=== PATIENT | male | born 1955 | race African-American/Black ===

== ENCOUNTER 2018-05-24 08:09 | Inpatient (IN) | payer MEDICAID, OTHER ==
[~2018-05-24] VITALS: Ht 165.1 cm; Wt 71.7 kg
--- NOTE | 2018-05-24 08:11 | NUR ---
Patient ambulated to bed 6. RN evaluating patient at bedside.
--- NOTE | 2018-05-24 08:14 | NUR ---
Dr. Peacock evaluating patient at bedside.
[2018-05-24 08:15] VITALS: BP 185/125
--- NOTE | 2018-05-24 08:22 | NUR ---
Note undone in EDM - 05/24/18 at 0829 by [email or web address] PT. C/O OF SOB X2 WEEKS, BLE EDEMA, PITTING +2. PT. STATES THAT LEGS ARE BURNING, FLUIDS SEEPING FROM LEGS. PAIN IS 9/10, CONSTANT, BURNING SENSATION. HANDS BLUE AND DUSKY. LABORED BREATHING, INTERCOSTAL MUSCLE USE. HX: DENIES RX: DENIES
--- NOTE | 2018-05-24 08:24 | NUR ---
Haven pino in ED - 05/24/18 at 0825 by MMTHEM Repiratory therapist at bedside for ABG.
--- NOTE | 2018-05-24 08:25 | NUR ---
Respiratory therapist at bedside for ABG.
--- NOTE | 2018-05-24 08:52 | NUR ---
fiberglass quality technician at bedside.
[2018-05-24 08:55] LABS: BASOPHILS % (AUTO) 0.6 % (0.0-2.0); EOSINOPHILS % (AUTO) 0.9 % (0.0-4.0); HEMATOCRIT 44.5 % (36-52); HEMOGLOBIN 13.9 g/dL (12.0-18.0); LYMPHOCYTES # (AUTO) 1.1 K/uL (2.0-11.5); LYMPHOCYTES % (AUTO) 21.3 % (20.5-51.1); MEAN CORPUSCULAR HEMOGLOBIN 28 pg (27-31); MEAN CORPUSCULAR HGB CONC 31 g/dL (33-37); MONOCYTES # (AUTO) 0.2 K/uL (0.8-1.0); MONOCYTES % (AUTO) 4.3 % (1.7-9.3); NEUTROPHILS # (AUTO) 3.8 K/uL (1.8-7.7); NEUTROPHILS % (AUTO) 72.9 % (42.2-75.2); PLATELET COUNT (AUTO) 133 K/uL (140-450); RED BLOOD CELL COUNT(AUTO) 4.89 MIL/uL (4.20-6.10); RED CELL DISTRIBUTION WIDTH 15.2 % (11.6-13.7); WHITE BLOOD COUNT (AUTO) 5.2 K/uL (4.8-10.8)
--- NOTE | 2018-05-24 09:12 | NUR ---
SWITCHED ADULT 02 OX SENSOR FROM FINGER TO PEDS O2 OX SENSOR ON R EAR.
--- NOTE | 2018-05-24 09:24 | NUR ---
UNABLE TO VOID AT THIS TIME FOR SAMPLE
[2018-05-24] MEDS ORDERED: ASPIRIN 81 MG TAB.CHEW PO ONE (09:25)
[2018-05-24] MEDS ORDERED: NITROGLYCERIN 2% 1 GM PKT TP ONE (09:25)
[2018-05-24] MEDS ORDERED: FUROSEMIDE 20 MG/2 ML VIAL IVP ONE (09:25)
[2018-05-24 09:37] LABS: PROTHROMBIN TIME 16.1 secs (10.8-13.4)
[2018-05-24] MEDS ORDERED: ONDANSETRON 4 MG/2 ML VIAL IVP PRN (10:05)
[2018-05-24] MEDS ORDERED: HYDROcodone/APAP 7.5/325 MG 1 TAB PO PRN (10:05)
[2018-05-24 10:08] LABS: ANION GAP 13.6 (8-16); POTASSIUM 3.6 mmol/L (3.5-5.1)
[2018-05-24 10:09] LABS: CREATININE 1.1 mg/dL (0.7-1.3); TOTAL BILIRUBIN 1.1 mg/dL (0.0-1.0)
[2018-05-24 11:00] VITALS: BP 171/120
--- NOTE | 2018-05-24 11:00 | NUR ---
RECEIVED PT FROM ER NURSE. PT IS AMB, AAOX4. NO S/S OF ACUTE DISTRESS ON 3L O2 VIA NC. CC: SOB AND SWELLING OF BLE. DX CHF, PLEURAL EFFUSION. INITIAL ASSESSMENT DONE. MRSA SWAB DONE. PT TOLERATED WELL. PLACE PT ON TELE. ORIENTED PT TO RM AND CALL LIGHT. PT VERBALIZED UNDERSTANDING. BED LOCKED IN LOWEST POSITION. BOTH SIDE RAILS DONE. CALL LIGHT WITHIN REACH.
--- NOTE | 2018-05-24 11:01 | NUR ---
Pt report given to JOSE ANDUJAR. Transfer of care at 1055.
[2018-05-24 11:09] LABS: FREE T4 (FREE THYROXINE) 1.45 ng/dL (0.76-1.46); MAGNESIUM 1.8 mg/dL (1.8-2.4); PHOSPHORUS 3.2 mg/dL (2.5-4.9); THYROID STIMULATING HORMONE 3.44 uIU/mL (0.34-3.74)
--- NOTE | 2018-05-24 11:10 | NUR ---
IV NOTED TO LEFT FA, 18G, FLUSHED, PATENT AND INTACT.
[2018-05-24 11:19] LABS: APPEARANCE,URINE CLEAR (CLEAR); BILIRUBIN,URINE 1+ (NEGATIVE); BLOOD, URINE NEGATIVE (NEGATIVE); COLOR,URINE YELLOW (YELLOW); LEUKOCYTE ESTERASE ,URINE NEGATIVE (NEGATIVE); NITRITE, URINE NEGATIVE (NEGATIVE); UGLUCOSE NEGATIVE (NEGATIVE)
[2018-05-24] MEDS: NACL 0.9% 1,000 ML IV SCH (11:55)
[2018-05-24] MEDS ORDERED: FUROSEMIDE 100 MG/10 ML VIAL IV SCH (12:00)
[2018-05-24 12:06] LABS: RBC,URINE 0-5 (RARE) /HPF (0-5); WBC,URINE 0-5 (RARE) /HPF (0-5)
[2018-05-24 13:00] LABS: BARBITURATE, URINE NEGATIVE ng/ml (NEG <=200); BENZODIAZEPINE, URINE NEGATIVE ng/mL (NEG <=200); CANNABINOID, URINE POSITIVE ng/mL (NEG <=50); COCAINE, URINE NEGATIVE ng/mL (NEG <=300); OPIATE, URINE NEGATIVE ng/mL (NEG <=2000); PHENCYCLIDINE SCREEN,URINE NEGATIVE ng/mL (NEG <=25)
[2018-05-24 13:30] VITALS: BP 159/93
--- NOTE | 2018-05-24 15:05 | NUR ---
ECHOCARDIOGRAM WAS DONE. PT TOLERATED WELL.
[2018-05-24 16:00] VITALS: BP 157/112
--- NOTE | 2018-05-24 16:00 | NUR ---
VITALS TAKEN, NO S/S OF ACUTE DISTRESS NOTED ON 3L O2 NC.
[2018-05-24] MEDS ORDERED: METOPROLOL 25 MG TAB PO SCH ×2 (16:54→21:00)
[2018-05-24] MEDS ORDERED: LISINOPRIL 20 MG TAB PO SCH (18:41)
--- NOTE | 2018-05-24 19:25 | NUR ---
ENDORSED PT TO MARSHMALLOW MAKER RN. PT IN STABLE CONDITION.
--- NOTE | 2018-05-24 19:26 | NUR ---
RECEIVED BEDSIDE REPORT FROM DAY SHIFT NURSE JOSE RN, PT STABLE, NO DISTRESS NOTED, IV TO L FA 18G PATENT, INTACT, INFUSING NS @ 20ML/HR, INFUSING WELL, PT ON 3LPM O2 VIA NC, PT SLEEPING, STATED HAVING NO PAIN AT THIS MOMENT, INITIAL ASSESSMENT DONE, ALL SAFETY PRECAUTION MET, CALL LIGHT WITHIN REACH, WILL CONTINUE TO MONITOR.
[2018-05-24 20:00] VITALS: BP 135/95
[2018-05-24] MEDS ORDERED: FUROSEMIDE 20 MG/2 ML VIAL IVP SCH (21:00)
--- NOTE | 2018-05-24 21:25 | NUR ---
MAIL CALLER ATTEMPT TO DO ULTRASOUND OF THE PT'S ABD, PT HAD EPISODE OF SOB, SIT UP THE PT, AND TEACH PT TO TAKE SLOW DEEP BREATHS, PO2 100 %, MAIL CALLER SAID SHE WILL TAKE PT'S ULTRASOUND IN THE MORNING, PT RESTING NOW, NO DISTRESS NOTED, BREATHING NORMALLY WHEN SITTING DOWN, CALL LIGHT WITHIN REACH, WILL CONTINUE TO MONITOR.
[2018-05-24] MEDS: DOCUSATE SODIUM 100 MG GELCAP PO SCH (21:35)
[2018-05-24] MEDS: METOPROLOL 25 MG TAB PO SCH (21:35)
--- NOTE | 2018-05-24 21:35 | NUR ---
DUE MEDICATION ADMINISTERED, PT TOLERATED WELL, NO DISTRESS NOTED, CALL LIGHT WITHIN REACH, WILL CONTINUE TO MONITOR.
[2018-05-25] VITALS: BP 136/87
--- NOTE | 2018-05-25 00:10 | NUR ---
CHECKED ON PT, PT SLEEPING, NO DISTRESS NOTED, V/S TAKEN, WNL, CALL LIGHT WITHIN REACH, WILL CONTINUE TO MONTIORL.
--- NOTE | 2018-05-25 03:21 | NUR ---
PT SLEEPING, NO DISTRESS NOTED, CALL LIGHT WITHIN REACH, WILL CONTINUE TO MONITOR.
[2018-05-25 04:00] VITALS: BP 147/90
[2018-05-25 06:54] LABS: BASOPHILS % (AUTO) 0.4 % (0.0-2.0); EOSINOPHILS % (AUTO) 0.6 % (0.0-4.0); HEMATOCRIT 39.2 % (36-52); HEMOGLOBIN 12.6 g/dL (12.0-18.0); LYMPHOCYTES # (AUTO) 0.8 K/uL (2.0-11.5); LYMPHOCYTES % (AUTO) 16.2 % (20.5-51.1); MEAN CORPUSCULAR HEMOGLOBIN 29 pg (27-31); MEAN CORPUSCULAR HGB CONC 32 g/dL (33-37); MEAN CORPUSCULAR VOLUME 89.7 fL (80-94); MONOCYTES # (AUTO) 0.4 K/uL (0.8-1.0); MONOCYTES % (AUTO) 7.4 % (1.7-9.3); NEUTROPHILS # (AUTO) 3.6 K/uL (1.8-7.7); NEUTROPHILS % (AUTO) 75.4 % (42.2-75.2); PLATELET COUNT (AUTO) 105 K/uL (140-450); RED BLOOD CELL COUNT(AUTO) 4.37 MIL/uL (4.20-6.10); RED CELL DISTRIBUTION WIDTH 14.9 % (11.6-13.7); WHITE BLOOD COUNT (AUTO) 4.8 K/uL (4.8-10.8)
--- NOTE | 2018-05-25 07:30 | NUR ---
ENDORSED PT TO DAY SHIFT NURSE EMILIANO ANDUJAR, PT IN STABLE CONDITION CALL LIGHT WITHIN REACH
[2018-05-25 08:00] VITALS: BP 138/79
[2018-05-25 08:04] LABS: POTASSIUM 3.6 mmol/L (3.5-5.1)
[2018-05-25 08:13] LABS: MAGNESIUM 1.5 mg/dL (1.8-2.4); PHOSPHORUS 3.1 mg/dL (2.5-4.9)
[2018-05-25 08:18] LABS: HEPATITIS A ANTIBODY IGM Negative (Negative); HEPATITIS B SURFACE ANTIBODY Reactive (.); HEPATITIS B SURFACE ANTIGEN Negative (Negative)
--- NOTE | 2018-05-25 08:33 | NUR ---
PATIENT HAS BEEN SCREENED AND CATEGORIZED MODERATE NUTRITION RISK. PATIENT WILL BE SEEN WITHIN 3-5 DAYS OF ADMISSION. 05/26/18 05/28/[address]
[2018-05-25] MEDS ORDERED: LISINOPRIL 20 MG TAB PO SCH (09:00)
[2018-05-25] MEDS: DOCUSATE SODIUM 100 MG GELCAP PO SCH ×2 (09:00→21:39)
[2018-05-25] MEDS ORDERED: FUROSEMIDE 20 MG/2 ML VIAL IVP SCH (09:24)
[2018-05-25] MEDS ORDERED: FUROSEMIDE 40 MG/4 ML VIAL IVP SCH (09:25)
[2018-05-25 09:37] LABS: CARBON DIOXIDE 25.3 mmol/L (21-32)
[2018-05-25] MEDS: METOPROLOL 25 MG TAB PO SCH ×2 (09:58→21:39)
[2018-05-25] MEDS: NACL 0.9% 1,000 ML IV SCH (10:05)
[2018-05-25 10:48] LABS: CHOL/HDL RATIO 3.5 (1-4.5)
[2018-05-25] MEDS ORDERED: LISINOPRIL 5 MG TAB PO SCH (11:09)
[2018-05-25 12:00] VITALS: BP 140/80
[2018-05-25 16:00] VITALS: BP 135/78
[2018-05-25] MEDS: FUROSEMIDE 40 MG/4 ML VIAL IVP SCH (17:17)
--- NOTE | 2018-05-25 19:20 | NUR ---
RECEIVED REPORT FROM DAY SHIFT RN. PT IS A&OX4. RESPIRATIONS ARE EQUAL AND UNLABORED. IV ON L FA 18G INFUSING NS AT 20ML/H. S/P THORACENTESIS DRESSING CLEAN DRY AND INTACT. ABDOMEN DISTENDED. HAS BLE EDEMA. PT ON NC 3L. NO SOB. PATIENT DENIES ANY PAIN AT THIS MOMENT. PLAN OF CARE DISCUSSED. PT VERBALIZED UNDERSTANDING. ALL NEEDS MET AT THIS TIME. CALL LIGHT WITHIN REACH
[2018-05-25 20:00] VITALS: BP 151/93
[2018-05-25 20:26] LABS: APPEARANCE,SPUN,BODY FLUID CLEAR (CLEAR); APPEARANCE,UNSPUN,BODY FLUID CLEAR (CLEAR); COLOR,BODY FLUID LT YELLOW (LT YELLOW); GLUCOSE,BODY FLUID 126 mg/dL; SPECIMENTYPE,BODY FLUID THORACENTESIS
[2018-05-25 20:27] LABS: TOTAL VOLUME,BODY FLUID 11450 mL
[2018-05-25 20:29] LABS: RBC, BODY FLUID 53 /cu. mm.; WBC, BODY FLUID 67 /cu. mm.
[2018-05-25 20:40] LABS: POLYNUCLEAR, BODY FLUID 10 %
[2018-05-25] MEDS: MAGNESIUM OXIDE 400 MG TAB PO SCH (21:39)
--- NOTE | 2018-05-25 21:39 | NUR ---
VITAL SIGNS ARE WITHIN NORMAL LIMITS. PT DENIES ANY PAIN. DUE MEDICATIONS GIVEN PT TOLERATED WELL. CALL LIGHT WITHIN REACH.
[2018-05-25] MEDS: ACETAMINOPHEN 325 MG TAB PO PRN (23:56)
[2018-05-26] VITALS: BP 150/95
--- NOTE | 2018-05-26 | NUR ---
VITAL SIGNS ARE WITHIN NORMAL LIMITS. PT COMPLAIN OF HEADACHE WILL MEDICATE PER ORDERS.
[2018-05-26] MEDS ORDERED: INFLUENZA VIRUS VACCINE QUAD 0.5 ML SYR IMVAC PRN (00:55)
[2018-05-26] MEDS ORDERED: PNEUMOCOCCAL VACCINE 23 MCG/0.5 ML VIAL IMVAC PRN (00:55)
--- NOTE | 2018-05-26 02:37 | NUR ---
PT SLEEPING. RESPIRATIONS ARE EQUAL AND UNLABORED. NO DISTRESS NOTED CALL LIGHT WITHIN REACH.
[2018-05-26 04:00] VITALS: BP 133/85
--- NOTE | 2018-05-26 04:16 | NUR ---
PT SLEEPING COMFORTABLY IN BED. NO DISTRESS NOTED. CALL LIGHT WITHIN REACH.
--- NOTE | 2018-05-26 05:44 | NUR ---
PT ASLEEP. NO DISTRESS NOTED. RESPIRATIONS EQUAL AND UNLABORED. CALL LIGHT WITHIN REACH.
[2018-05-26 07:13] LABS: BASOPHILS % (AUTO) 0.4 % (0.0-2.0); HEMATOCRIT 41.3 % (36-52); LYMPHOCYTES # (AUTO) 0.8 K/uL (2.0-11.5); LYMPHOCYTES % (AUTO) 15.9 % (20.5-51.1); MEAN CORPUSCULAR HEMOGLOBIN 28 pg (27-31); MEAN CORPUSCULAR HGB CONC 32 g/dL (33-37); MEAN CORPUSCULAR VOLUME 89.8 fL (80-94); MONOCYTES # (AUTO) 0.4 K/uL (0.8-1.0); MONOCYTES % (AUTO) 8.4 % (1.7-9.3); NEUTROPHILS # (AUTO) 3.6 K/uL (1.8-7.7); NEUTROPHILS % (AUTO) 74.3 % (42.2-75.2); PLATELET COUNT (AUTO) 109 K/uL (140-450); RED BLOOD CELL COUNT(AUTO) 4.59 MIL/uL (4.20-6.10); RED CELL DISTRIBUTION WIDTH 14.8 % (11.6-13.7); WHITE BLOOD COUNT (AUTO) 4.8 K/uL (4.8-10.8)
--- NOTE | 2018-05-26 07:15 | NUR ---
RECEIVED REPORT FROM PATHOLOGY SECRETARY RN. PT IS SLEEPING, ROUSED BY NAME, OX4. NO S/S OF ACUTE DISTRESS NOTED ON 3L O2 NC. IV ON L FA 18G INFUSING NS AT 20ML/HR, ASYMPTOMATIC. S/P DAY 2 THORACENTESIS, DRESSING CLEAN, DRY AND INTACT. BLE EDEMA, PITTING 2+. DENIES ANY PAIN AT THIS MOMENT. PLAN OF CARE DISCUSSED. PT VERBALIZED UNDERSTANDING. BED IN LOWEST POSITION. CALL LIGHT WITHIN REACH.
--- NOTE | 2018-05-26 07:15 | NUR ---
ENDORSED PT TO DAY SHIFT RN. PT IN STABLE CONDITION
[2018-05-26 08:00] VITALS: BP 145/96
[2018-05-26] MEDS: MAGNESIUM OXIDE 400 MG TAB PO SCH (08:09)
[2018-05-26] MEDS: METOPROLOL 25 MG TAB PO SCH (08:10)
[2018-05-26] MEDS: DOCUSATE SODIUM 100 MG GELCAP PO SCH (08:10)
[2018-05-26] MEDS: FUROSEMIDE 40 MG/4 ML VIAL IVP SCH (08:11)
[2018-05-26 08:47] LABS: ANION GAP 10.7 (8-16); CARBON DIOXIDE 31.2 mmol/L (21-32); CREATININE 1.1 mg/dL (0.7-1.3); POTASSIUM 3.9 mmol/L (3.5-5.1)
[2018-05-26 08:49] LABS: MAGNESIUM 1.4 mg/dL (1.8-2.4); PHOSPHORUS 2.7 mg/dL (2.5-4.9)
[2018-05-26] MEDS ORDERED: LISINOPRIL 5 MG TAB PO SCH (09:00)
[2018-05-26] MEDS: NACL 0.9% 1,000 ML IV SCH (09:02)
[2018-05-26] MEDS ORDERED: MAG SULF 2000 MG/WATER PREMIX 100 ML IV ONE (10:30)
--- NOTE | 2018-05-26 10:36 | NUR ---
REDUCED O2 TO 1.5 L NC. NO S/S OF ACUTE DISTRESS AT THIS TIME. WILL RECHECK O2 SAT AT 1200
--- NOTE | 2018-05-26 10:53 | NUR ---
O2 SAT RIGHT NOW IS 97% AT 1.5L NC. DR LOVING REMOVED PT'S O2. NO S/S OF ACUTE DISTRESS AT THIS TIME.
[2018-05-26] MEDS ORDERED: MAGNESIUM SULFATE 4GM in STERILE WATER 100 ML PREMIX IV SCH (11:00)
[2018-05-26] MEDS: ACETAMINOPHEN 325 MG TAB PO PRN (11:53)
--- NOTE | 2018-05-26 11:55 | NUR ---
O2 SAT 96% ON ROOM AIR. NO S/S OF ACUTE DISTRESS AT THIS TIME.
[2018-05-26 12:00] VITALS: BP 140/87
[2018-05-26] MEDS ORDERED: LISI-424 PO (12:02)
[2018-05-26] MEDS ORDERED: METO25TA PO (12:02)
[2018-05-26] MEDS ORDERED: POTA10CE85 PO (12:03)
[2018-05-26] MEDS ORDERED: FURO-570 PO (12:03)
[2018-05-26 13:49] LABS: LDH,BODY FLUID 102 U/L
[2018-05-26 14:23] LABS: HEPATITIS B CORE AB TOTAL Positive (Negative)
--- NOTE | 2018-05-26 15:20 | NUR ---
PT DISCHARGED PER MD ORDER. MEDIATION TEACHING AND DISCHARGE INSTRUCTIONS GIVEN. PT VERBALIZED UNDERSTANDING. PT SIGNED ALL DISCHARGE PAPER. REMOVED TELE BOX, DC IV CATH, TIP INTACT, PRESSURE APPLIED. NO S/S OF ACUTE DISTRESS NOTED ON ROOM AIR. THORACENTESIS SITE INTACT WITH BAND-AID, NO DISCHARGE NOTED. DENIES ANY PAIN. WILL WHEEL PT OUT WHEN HIS FRIEND IS HERE TO PICK HIM UP.
--- NOTE | 2018-05-26 15:55 | NUR ---
PT HAS CALLED HIS FRIEND MEHRDAD FOR RATE REVIEWER, WALKED WITH PT TO FRONT LOBBY, PT WAITING FOR HIS RIDE.
== END 2018-05-26 15:55 | disposition home or self-care (01) | DRG 190 ==
LOC: MED 08:09 → MTU 10:05
PROVIDERS: ADMIT General Practice; ATTEND General Practice
PROC: 0W993ZZ Drainage of Right Pleural Cavity, Percutaneous Approach (ICD-10-PCS; principal; 2018-05-25)
PROC: 3E0234Z Introduction of Serum, Toxoid and Vaccine into Muscle, Percutaneous Approach (ICD-10-PCS; 2018-05-26)
PROC: 3E02340 Introduction of Influenza Vaccine into Muscle, Percutaneous Approach (ICD-10-PCS; 2018-05-26)
DX: I21.4 Non-ST elevation (NSTEMI) myocardial infarction (principal); J96.00 Acute respiratory failure, unspecified whether with hypoxia or hypercapnia; I50.43 Acute on chronic combined systolic (congestive) and diastolic (congestive) heart failure; J90 Pleural effusion, not elsewhere classified; E83.42 Hypomagnesemia; I07.1 Rheumatic tricuspid insufficiency; I27.20 Pulmonary hypertension, unspecified; I42.9 Cardiomyopathy, unspecified; R74.0 Nonspecific elevation of levels of transaminase and lactic acid dehydrogenase [LDH]; I16.0 Hypertensive urgency; F17.210 Nicotine dependence, cigarettes, uncomplicated; F12.90 Cannabis use, unspecified, uncomplicated; I34.0 Nonrheumatic mitral (valve) insufficiency; Z68.26 Body mass index [BMI] 26.0-26.9, adult; Z79.899 Other long term (current) drug therapy; Z23 Encounter for immunization
CPT/HCPCS: 36415; 36600; 71045; 76705; 76942; 80048; 80053; 80305; 81001; 82150; 82803; 82945; 83036; 83605; 83615; 83690; 83735; 83880; 84100; 84155; 84157; 84439; 84443; 84484; 85025; 85610; 85730; 86704; 86706; 86708; 86709; 86803; 87040; 87070; 87075; 87081; 87205; 87340; 89051; 90658; 90732; 93005; 96374; 99291; J1940; J2001; J7030; Q0092

== ENCOUNTER 2018-07-18 17:30 | Inpatient (IN) | payer MEDICAID ==
[~2018-07-18] VITALS: Ht 165.1 cm; Wt 63.5 kg
[~2018-07-18 17:30] MED LIST: FURO-570 PO; LISI-424 PO; METO25TA PO; POTA10CE85 PO
[2018-07-18] MEDS ORDERED: FUROSEMIDE 20 MG/2 ML VIAL IVP ONE (18:18)
[2018-07-18] MEDS ORDERED: ASPIRIN 81 MG TAB.CHEW ONE (18:19)
[2018-07-18] MEDS ORDERED: NITROGLYCERIN 2% 1 GM PKT TP ONE (18:19)
[2018-07-18] MEDS ORDERED: LEVOFLOXACIN 500 MG/D5W PREMIX 100 ML IV ONE (18:39)
--- NOTE | 2018-07-18 19:06 | NUR ---
PT IN BED 4 UPON RECIEVING REPORT. PT ON BIPAP. REPORT TAKEN FROM DIEGO RN. TRIAGE AND INITIAL NURSES NOTES DONE BY HAND PER DOWN-TIME PROTOCOL. PT IN BED WITH VSS. ALERT WITH EYES OPEN. BIPAP ON. CONTINUE TO MONITOR.
--- NOTE | 2018-07-18 20:32 | NUR ---
REPORT GIVEN AND CARE TRANSFERED TO TAL RN ROOM 104A. TRANSFERED VIA GURNEY WITH VSS. PT ON BIPAP, ESCORTED BY MOTOR CARRIER INSPECTOR.
--- NOTE | 2018-07-18 20:34 | NUR ---
RECEIVED PATIENT FROM STREET SPRINKLER JOMAR. TRANSFERRED PATIENT INTO UNIT VIA GURNEY, PATIENT ABLE TO AMBULATE TO BED WITH ASSISTANCE. PATIENT IS A/Ox4, ABLE TO MAKE NEEDS KNOWN. CHIEF COMPLAINT OF SOB x 1 WEEK, BILATERAL SWELLING OF UPPER AND LOWER EXTREMITIES, NON PITTING. DX - CHF EXACERBATION, HX FOR HTN AND CHF. INTRODUCED SELF TO PATIENT, UPDATED BOARD. RT WAS IN THE ROOM WHILE PATIENT WAS BEING ADMITTED, BI-PAP MASK ADMINISTERED. IV NOTED ON RIGHT ANTECUBITAL, INTACT AND PATENT, NO S/SX OF SWELLING OR INFECTION NOTED. ADMITTING VITAL SIGNS ARE FOLLOWS: BP 162/99, RR 33, HR 115, O2Sat 100%, TEMP 97.8. CHECKED BILATERAL UPPER AND LOWER EXTREMITIES, NO PITTING NOTED. INITIAL ASSESSMENT DONE, ALL SAFETY PRECAUTIONS MET. BED IN THE LOWEST POSITION, CALL LIGHT WITHIN REACH. WILL CONTINUE TO MONITOR.
[2018-07-18] MEDS ORDERED: LORazepam 2 MG/ML VIAL IM/IVP PRN (20:50)
[2018-07-18] MEDS ORDERED: ACETAMINOPHEN 325 MG TAB PO PRN (20:50)
[2018-07-18] MEDS ORDERED: ONDANSETRON 4 MG/2 ML VIAL IM/IVP PRN (20:50)
[2018-07-18] MEDS ORDERED: DOCUSATE SODIUM 100 MG GELCAP PO PRN (20:50)
[2018-07-18 21:52] LABS: MAGNESIUM 1.9 mg/dL (1.8-2.4); PHOSPHORUS 4.2 mg/dL (2.5-4.9); THYROID STIMULATING HORMONE 3.74 uIU/mL (0.34-3.74)
--- NOTE | 2018-07-18 23:01 | NUR ---
2100 PT WANTED OFF BIPAP TO EAT. PLACED PT ON 9L OXYMIZER. PT WILL GO BACK ON WHEN DONE EATING
--- NOTE | 2018-07-18 23:45 | NUR ---
DECREASED PT TO 5 L OXIMYZER. WILL CONTINUE TO MONITOR.
[2018-07-19 00:03] VITALS: BP 160/99
[2018-07-19 00:04] LABS: BARBITURATE, URINE NEG. ng/ml (NEG <=200); BENZODIAZEPINE, URINE NEG. ng/mL (NEG <=200); CANNABINOID, URINE NEG. ng/mL (NEG <=50); COCAINE, URINE NEG. ng/mL (NEG <=300); OPIATE, URINE NEG. ng/mL (NEG <=2000); PHENCYCLIDINE SCREEN,URINE NEG. ng/mL (NEG <=25)
--- NOTE | 2018-07-19 00:15 | NUR ---
LAB CALLED TO REPORT CRITICAL LABS TROPONIN 0.502, LACTIC ACID 3.3. BOTH TAKEN AT 1755 07/18/[address]. DR. CHU MADE AWARE, NO NEW ORDERS. Addendum: 07/19/18 at 0795 by Kane Diana RN ADDNEDUM - DR. HILTON
[2018-07-19 00:17] LABS: ANION GAP 8.5 (8-16); CARBON DIOXIDE 28.1 mmol/L (21-32); CREATININE 1.2 mg/dL (0.7-1.3); POTASSIUM 4.6 mmol/L (3.5-5.1)
[2018-07-19 00:18] LABS: ALBUMIN 3.2 g/dL (3.4-5.0); TOTAL BILIRUBIN 1.3 mg/dL (0.0-1.0)
[2018-07-19 00:23] LABS: BASOPHILS % (AUTO) 0.3 % (0.0-2.0); EOSINOPHILS % (AUTO) 0.3 % (0.0-4.0); HEMATOCRIT 43.2 % (36-52); HEMOGLOBIN 14.4 g/dL (12.0-18.0); LYMPHOCYTES # (AUTO) 0.7 K/uL (2.0-11.5); LYMPHOCYTES % (AUTO) 12.2 % (20.5-51.1); MEAN CORPUSCULAR HEMOGLOBIN 27 pg (27-31); MEAN CORPUSCULAR HGB CONC 31 g/dL (33-37); MEAN CORPUSCULAR VOLUME 88.2 fL (80-94); MONOCYTES # (AUTO) 0.3 K/uL (0.8-1.0); MONOCYTES % (AUTO) 5.7 % (1.7-9.3); NEUTROPHILS # (AUTO) 4.6 K/uL (1.8-7.7); NEUTROPHILS % (AUTO) 81.5 % (42.2-75.2); PLATELET COUNT (AUTO) 126 K/uL (140-450); RED BLOOD CELL COUNT(AUTO) 5.26 MIL/uL (4.20-6.10); RED CELL DISTRIBUTION WIDTH 16.4 % (11.6-13.7); WHITE BLOOD COUNT (AUTO) 5.7 K/uL (4.8-10.8)
[2018-07-19 00:39] LABS: APPEARANCE,URINE CLEAR (CLEAR); COLOR,URINE YELLOW (YELLOW)
[2018-07-19 00:40] LABS: BILIRUBIN,URINE NEGATIVE (NEGATIVE); BLOOD, URINE NEGATIVE (NEGATIVE); LEUKOCYTE ESTERASE ,URINE NEGATIVE (NEGATIVE); NITRITE, URINE NEGATIVE (NEGATIVE); RBC,URINE NONE SEEN /HPF (0-5); UGLUCOSE NEGATIVE (NEGATIVE); WBC,URINE NONE SEEN /HPF (0-5)
[2018-07-19 00:41] LABS: HYALINE CASTS, URINE 0-10 /LPF (None Seen); URINE AMORPHOUS URATE 2+ /HPF (None Seen)
[2018-07-19] MEDS ORDERED: FUROSEMIDE 40 MG/4 ML VIAL IVP SCH (01:00)
[2018-07-19] MEDS ORDERED: PIPERACILLIN/TAZOBACTAM 3.375 GM VIAL IV ONE ×2 (01:11→06:16)
--- NOTE | 2018-07-19 01:20 | NUR ---
LAB CALLED ABOUT CRITICAL LAB LACTIC ACID 2.2, TRENDING DOWN. DR. CHU MADE AWARE, NO NEW ORDERS. Addendum: 07/19/18 at 0748 by Kane Diana RN ADDSCOTTYUM - DR. HILTON
[2018-07-19] MEDS: PIPER/TAZO 3.375GM/D5W PREMIX 50 ML IV SCH ×4 (01:21→18:47)
[2018-07-19] MEDS: NACL 0.9% 1,000 ML IV SCH ×2 (01:21→20:48)
--- NOTE | 2018-07-19 01:30 | NUR ---
FREQUENT ROUNDS MADE. PATIENT ASLEEP. WILL CONTINUE TO MONITOR.
--- NOTE | 2018-07-19 03:24 | NUR ---
LAB CALLED ABOUT CRITICAL LAB TROPONIN 0.454, TRENDING DOWN, TAKEN AT 0100. DR. CHU MADE AWARE, NO NEW ORDERS. Addendum: 07/19/18 at 0770 by Kane Diana RN ADDENDUM - DR. HILTON
[2018-07-19 04:00] VITALS: BP 158/104
[2018-07-19 04:25] LABS: ANION GAP 9.1 (8-16); CARBON DIOXIDE 29.1 mmol/L (21-32); CREATININE 1.2 mg/dL (0.7-1.3); POTASSIUM 4.2 mmol/L (3.5-5.1)
[2018-07-19 04:31] LABS: CHOL/HDL RATIO 4.1 (1-4.5); MAGNESIUM 1.7 mg/dL (1.8-2.4); PHOSPHORUS 4.3 mg/dL (2.5-4.9)
[2018-07-19 04:32] LABS: ALBUMIN 2.9 g/dL (3.4-5.0); BILIRUBIN,DIRECT 0.7 mg/dL (0.0-0.3); TOTAL BILIRUBIN 1.1 mg/dL (0.0-1.0)
[2018-07-19 06:16] LABS: BASOPHILS % (AUTO) 0.3 % (0.0-2.0); EOSINOPHILS % (AUTO) 0.5 % (0.0-4.0); HEMATOCRIT 44.1 % (36-52); HEMOGLOBIN 13.9 g/dL (12.0-18.0); LYMPHOCYTES # (AUTO) 0.6 K/uL (2.0-11.5); LYMPHOCYTES % (AUTO) 10.8 % (20.5-51.1); MEAN CORPUSCULAR HEMOGLOBIN 28 pg (27-31); MEAN CORPUSCULAR HGB CONC 32 g/dL (33-37); MEAN CORPUSCULAR VOLUME 87.1 fL (80-94); MONOCYTES # (AUTO) 0.5 K/uL (0.8-1.0); MONOCYTES % (AUTO) 8.1 % (1.7-9.3); NEUTROPHILS # (AUTO) 4.6 K/uL (1.8-7.7); NEUTROPHILS % (AUTO) 80.3 % (42.2-75.2); PLATELET COUNT (AUTO) 119 K/uL (140-450); RED BLOOD CELL COUNT(AUTO) 5.07 MIL/uL (4.20-6.10); WHITE BLOOD COUNT (AUTO) 5.7 K/uL (4.8-10.8)
--- NOTE | 2018-07-19 07:10 | NUR ---
ENDORSED PATIENT TO AM CON FRANK. PATIENT IN STABLE CONDITION.
[2018-07-19] MEDS ORDERED: MAGNESIUM OXIDE 400 MG TAB PO SCH (07:16)
--- NOTE | 2018-07-19 07:30 | NUR ---
RECEIVED PT ON BED AAOX4. NO SOB NOTED, ON OXYGEN THERAPY AT 4PM VIA OXYMIZER WITH SATS OF 95%. NO C/O PAIN AT THIS TIME. IV TO RT AC PATENT AND INTACT. CHEST, DIMINISHED AIR ENTRY TO THE BASES. ABDOMEN SOFT, BOWEL SOUNDS PRESENT. + 2 EDEMA NOTED ON BLE, ELEVATED WITH PILLOW. INSTRUCTED PT TO CALL FOR ASSISTANCE, CALL LIGHT WITHIN REACH, PT VERBALIZED UNDERSTANDING.
--- NOTE | 2018-07-19 07:46 | NUR ---
DECREASED OXYMIZER TO 4 L SPO2 100
--- NOTE | 2018-07-19 07:55 | NUR ---
PATIENT HAS BEEN SCREENED AND CATEGORIZED HIGH NUTRITION RISK. PATIENT WILL BE SEEN WITHIN 1-2 DAYS OF ADMISSION. 07/19/18-07/20/[address]
[2018-07-19 08:00] VITALS: BP 150/89
--- NOTE | 2018-07-19 08:20 | NUR ---
PLACED CONT. POX PROBE ON EAR SPO2 100 ON 4L OXYMIZER
[2018-07-19] MEDS ORDERED: FUROSEMIDE 20 MG/2 ML VIAL IVP SCH (09:00)
[2018-07-19] MEDS ORDERED: METOPROLOL 25 MG TAB PO SCH (09:00)
[2018-07-19] MEDS ORDERED: ATORVASTATIN 20 MG TAB PO SCH (09:00)
[2018-07-19] MEDS ORDERED: MAG SULF 2000 MG/WATER PREMIX 50 ML IV SCH (09:26)
[2018-07-19] MEDS: NICOTINE TRANSD SYS 7 MG/24 HR PATCH TD SCH (09:39)
[2018-07-19] MEDS: FUROSEMIDE 20 MG/2 ML VIAL IVP SCH ×2 (09:40→21:37)
[2018-07-19] MEDS: LISINOPRIL 5 MG TAB PO SCH (09:40)
[2018-07-19] MEDS: METOPROLOL 25 MG TAB PO SCH ×2 (09:41→21:38)
[2018-07-19] MEDS: LACTOBACILLUS RHAMNOSUS GG 1 EACH CAP PO SCH (09:41)
[2018-07-19] MEDS: ASPIRIN 81 MG TAB.CHEW PO SCH (09:41)
--- NOTE | 2018-07-19 10:00 | NUR ---
OXYGEN EXTENSION PROVIDED BY RT SO PT CAN MOVE AROUND THE ROOM WITHOUT RESTRICTION FORM SHORT O2 CORD.
[2018-07-19 12:00] VITALS: BP 132/88
--- NOTE | 2018-07-19 12:42 | NUR ---
07/19/18 RD INITIAL ASSESSMENT COMPLETED PLEASE REFER TO NUTRITION ASSESSMENT UNDER CARE ACTIVITY FOR ESTIMATED NUTRITIONAL NEEDS. 1. RECOMMEND CARDIAC DIET 2. RD PROVIDED LOW SODIUM NUTRITION THERAPY 3. RD TO FOLLOW-UP 3-5 DAYS, MODERATE RISK MICHAEL HAYES RD
--- NOTE | 2018-07-19 14:30 | NUR ---
PT RESTING, ON HIGH BACK REST. NO SOB NOTED. NO SIGNS OF PAIN.
[2018-07-19 16:00] VITALS: BP 139/96
--- NOTE | 2018-07-19 17:00 | NUR ---
PT SEEN BY DR. HAYWARD AT THE BEDSIDE WITH NEW ORDERS. ULTRASOUND GUIDED THORACENTESIS SIGNED BY PT, PROCEDURE EXPLAINED WELL BY DR. HAYWARD, RISKS AND BENEFITS EXPLAINED, PT VERBALIZED UNDERSTANDING.
--- NOTE | 2018-07-19 17:10 | NUR ---
SPOKE WITH CINDY FROM ULTRASOUND, STATED THAT PROCEDURE WILL BE DONE TOMORROW FIRST THING IN THE MORNING. DR HAYWARD AND PT NOTIFIED, VERBALIZED UNDERSTANDING.
[2018-07-19] MEDS: hydrALAZINE 25 MG TAB PO SCH (17:22)
--- NOTE | 2018-07-19 19:07 | NUR ---
PT AWAKE, TACHYPNEIC AT TIMES, STILL ON 4LPM OXYMIZER WITH 98% O2 SATS. ON HIGH BACK REST. NO C/O PAIN AT THSI TIME. WILL ENDORSE TO NEXT SHIFT NURSE FOR CONTINUITY OF CARE.
--- NOTE | 2018-07-19 19:10 | NUR ---
RECEIVED PT FROM ZAC ANDUJAR PT IS AAOX4 ON BES REST ON OXIMIZER 4 LTS NOT SOB NOTED ON TELMETRY SR IV ON RT AC INFUSING WELL, RESPIRATORY THERAPY IS HERE ASSISTING THE PT INITIAL ASSESSMENT DONE
[2018-07-19 20:00] VITALS: BP 137/85
--- NOTE | 2018-07-19 21:30 | NUR ---
Patient's Plan of Care was discussed and reviewed with NITRIC ACID CONCENTRATOR OPERATOR: GRICEL ZAMARRIPA
--- NOTE | 2018-07-19 21:30 | NUR ---
PT IS ENDORSED TO GRICEL ALEXIS FOR CONTINUITY OF CARE
--- NOTE | 2018-07-19 21:31 | NUR ---
RECD. FOR CONTINUITY OF CARE. RESTING IN BED, AWAKE, A/OX4. ON 02 AT 4 LITERS VIA N/C WITH OXYMIZER, 02 SAT -97%. WITH SOB ON EXERTION. HOB ELEVATED 45 DEGREES. IV OF NS AT INFUSING AT 10 ML/HR, RIGHT AC G20. WITH PITTING EDEMA 2+ ON BILATERAL LOWER EXTREMITIES. SAFETY MEASURES ENFORCED. ON CONTINUOUS PULSE OXIMETER. DENIES PAIN 0/10.
[2018-07-20] VITALS: BP 131/97
[2018-07-20] MEDS ORDERED: ZOLPIDEM 5 MG TAB PO SCH (01:00)
--- NOTE | 2018-07-20 01:00 | NUR ---
PULSE OX FLUCTUATING FROM 86 TO 99%, INFORMED RT BHARATH, STATED IT IS DUE TO POOR PERFUSION AND IT HAS BEEN THAT WAY ALL DAY THAT'S WHY PATIENT IS ON 4 LITERS N/C. WILL CONTINUE TO MONITOR, NO RESPIRATORY DISTRESS NOTED.
[2018-07-20] MEDS: PIPER/TAZO 3.375GM/D5W PREMIX 50 ML IV SCH ×3 (01:06→17:19)
--- NOTE | 2018-07-20 01:20 | NUR ---
ASSISTED OUT OF BED TO GO TO BR TO HAVE BM. BACK TO BED AFTER HAVING BM. SAFETY MAINTAINED. WARM BLANKET GIVEN, 02 SAT - 93%.
--- NOTE | 2018-07-20 01:25 | NUR ---
WANTS TO BE ABLE TO SLEEP WELL TONIGHT, MEDICATED WITH AMBIEN 5 MG. PO ORDERED.
[2018-07-20 04:00] VITALS: BP 136/95
--- NOTE | 2018-07-20 06:30 | NUR ---
RESTING COMFORTABLY SLEEPING, WAKEN UP. STATED ABLE TO SLEEP WELL.
--- NOTE | 2018-07-20 07:10 | NUR ---
RECEIVED PT REPORT AT BEDSIDE FROM DIPPER FISH NURSE. PT IS ALERT AND AWAKE, NO S/S OF ACUTE DISTRESS, NO SOB, NO C/O PAIN. PT IS ON 4 L O2 NC, SKIN IS INTACT. IV SITE NOTED TO THE RAC, 20 G, SALINE LOCKED. FALL PRECAUTIONS IN PLACE. CALL LIGHT WITHIN REACH. WILL CONT TO MONITOR PT.
--- NOTE | 2018-07-20 07:10 | NUR ---
CONDITION REMAIN STABLE. ENDORSED TO AM SHIFT NURSE FOR CONTINUITY OF CARE.
[2018-07-20 08:00] VITALS: BP 142/93
[2018-07-20 08:10] LABS: CREATININE 1.2 mg/dL (0.7-1.3)
[2018-07-20 08:26] LABS: MAGNESIUM 1.9 mg/dL (1.8-2.4); PHOSPHORUS 3.9 mg/dL (2.5-4.9)
[2018-07-20 08:30] LABS: ANION GAP 6.7 (8-16); POTASSIUM 3.7 mmol/L (3.5-5.1)
[2018-07-20 08:39] LABS: PROTHROMBIN TIME 15.5 secs (10.8-13.4)
[2018-07-20 08:59] LABS: BASOPHILS % (AUTO) 0.1 % (0.0-2.0); EOSINOPHILS # (AUTO) 0.1 K/uL (0-0.4); EOSINOPHILS % (AUTO) 1.9 % (0.0-4.0); HEMATOCRIT 45.3 % (36-52); HEMOGLOBIN 14.1 g/dL (12.0-18.0); LYMPHOCYTES # (AUTO) 0.7 K/uL (2.0-11.5); MEAN CORPUSCULAR HEMOGLOBIN 27 pg (27-31); MEAN CORPUSCULAR HGB CONC 31 g/dL (33-37); MEAN CORPUSCULAR VOLUME 87.4 fL (80-94); MONOCYTES # (AUTO) 0.3 K/uL (0.8-1.0); MONOCYTES % (AUTO) 5.5 % (1.7-9.3); NEUTROPHILS # (AUTO) 4.4 K/uL (1.8-7.7); NEUTROPHILS % (AUTO) 80.5 % (42.2-75.2); PLATELET COUNT (AUTO) 114 K/uL (140-450); RED BLOOD CELL COUNT(AUTO) 5.18 MIL/uL (4.20-6.10); WHITE BLOOD COUNT (AUTO) 5.5 K/uL (4.8-10.8)
[2018-07-20] MEDS: LISINOPRIL 5 MG TAB PO SCH (09:49)
[2018-07-20] MEDS: LACTOBACILLUS RHAMNOSUS GG 1 EACH CAP PO SCH (09:49)
[2018-07-20] MEDS: hydrALAZINE 25 MG TAB PO SCH ×3 (09:49→17:19)
[2018-07-20] MEDS: ASPIRIN 81 MG TAB.CHEW PO SCH (09:49)
[2018-07-20] MEDS: METOPROLOL 25 MG TAB PO SCH ×2 (09:50→21:07)
[2018-07-20] MEDS: NICOTINE TRANSD SYS 7 MG/24 HR PATCH TD SCH ×2 (09:52→13:56)
--- NOTE | 2018-07-20 11:33 | NUR ---
PT HAVING US GUIDED THORACENTESIS AT THIS TIME. R LUNG. DR JOSHI PERFORMING PROCEDURE. TIME-OUT COMPLETED.
[2018-07-20 12:00] VITALS: BP 124/80
--- NOTE | 2018-07-20 12:00 | NUR ---
1750 ML OF YELLOW FLUID DRAINED OUT OF THE R LUNG. PT TOLERATED WELL. LUNG FLUID SENT TO LAB.
[2018-07-20] MEDS: MORPHINE SULFATE 2 MG/ML SYR IVP PRN ×2 (12:16→21:20)
[2018-07-20] MEDS ORDERED: PIPER/TAZO 3.375GM/D5W PREMIX 50 ML IV SCH (13:54)
[2018-07-20] MEDS: FUROSEMIDE 40 MG/4 ML VIAL IVP SCH ×2 (13:56→21:07)
[2018-07-20 16:00] VITALS: BP 132/79
--- NOTE | 2018-07-20 16:00 | NUR ---
PT MOVED TO ROOM 105-B
--- NOTE | 2018-07-20 17:15 | NUR ---
PT HAVING EKG AT THIS TIME
--- NOTE | 2018-07-20 17:29 | NUR ---
PT C/O PAIN IN THE R CHEST AREA, LIKELY RELATED TO THE THORACENTESIS. MD NOTIFIED AND TALKING WITH THE PATIENT RIGHT NOW.
[2018-07-20] MEDS: HYDROcodone/APAP 5/325 MG 1 TAB TAB PO PRN (18:27)
[2018-07-20 18:57] LABS: GLUCOSE,BODY FLUID 106 mg/dL
[2018-07-20 19:07] LABS: APPEARANCE,SPUN,BODY FLUID CLEAR (CLEAR); APPEARANCE,UNSPUN,BODY FLUID CLEAR (CLEAR); COLOR,BODY FLUID LT YELLOW (LT YELLOW); RBC, BODY FLUID 163 /cu. mm.; SPECIMENTYPE,BODY FLUID PLEURAL; WBC, BODY FLUID 53 /cu. mm.
[2018-07-20 19:10] LABS: POLYNUCLEAR, BODY FLUID 5 %
--- NOTE | 2018-07-20 19:15 | NUR ---
PT ENDORSED TO ASSISTANT PROFESSOR OF GERMAN IN STABLE CONDITION
--- NOTE | 2018-07-20 19:15 | NUR ---
RECEIVED REPORT FROM MICHAEL ANDUJAR DAYSHIFT NURSE AT BEDSIDE FOR CONTINUITY OF CARE, PT IN STABLE CONDITION.
[2018-07-20 20:00] VITALS: BP 141/82
--- NOTE | 2018-07-20 20:00 | NUR ---
PT SITTING UP IN BED WITH SIDE RAILS UP X2 AND ALL FALLS PRECAUTIONS IN PLACE. PT IS AOX4 HAS AN OXIMIZER ON AT 2LITERS. PT HAD BANDAID ON RIGHT SIDE OF BACK WHERE HIS THORACENTESIS I WAS DONE. BANDAGE INTACT WITH NO DRAINAGE NOTED. PT LUNG SOUNDS CLEAR. V/S FOLLOWS T 98.5 P 52 R 18 B/P 113/78 02 95% WITH 2 LITERS OXIMIZER. PT SKIN INTACT BUT THERE IS PITTING EDEMA PLUS 3 ON BLE. PT ABLE TO AMBULATE WITH STANDBY ASSISTANCE. PT STOOL BY BEDSIDE TO USE URINAL AT BEDSIDE. PT ASSISTED BACK TO BED. PT C/O 5/10 PAIN AT THIS TIME. WILL MEDICATE PT AND MONITOR FOR PAIN RELIEF.
[2018-07-20] MEDS: NACL 0.9% 1,000 ML IV SCH (20:48)
--- NOTE | 2018-07-20 21:30 | NUR ---
PT HAS C/O OF 7/10 PAIN AND WAS GIVEN MORPHINE 1MG IVP/PRN. PT ALSO GIVEN DUE MEDS OF LASIX, AND LOPRESSOR. PT PLATELETS LOW, SPOKE TO RESIDENT MD DR. HILTON. SHE WAS MADE AWARE OF PLATELET LEVEL AND SAID THAT HEPARIN CAN BE GIVEN. PT ALSO GIVEN HEPARIN AT THIS TIME. WILL CONTINUE TO MONITOR FOR EFFECT.
[2018-07-21] VITALS: BP 138/83
[2018-07-21] MEDS: PIPER/TAZO 3.375GM/D5W PREMIX 50 ML IV SCH ×4 (00:06→17:16)
--- NOTE | 2018-07-21 00:30 | NUR ---
PT IV SITE ON RAC NOTED LEAKING AND SOME INFILTRATION. NEW IV SITE ON LEFT F/A 22G. ATTEMPTED INSERTION X1, IV SITE FLUSHED PATENT. ZOSYN HUNG ORDERED. V/S FOLLOWS T 98.1 P 96 R 18 B/P 138/83 02 IS 96% ON 2 LITERS VIA N/C.
[2018-07-21] MEDS: HYDROcodone/APAP 5/325 MG 1 TAB TAB PO PRN (01:09)
[2018-07-21 04:00] VITALS: BP 131/88
[2018-07-21] MEDS: FUROSEMIDE 40 MG/4 ML VIAL IVP SCH ×3 (05:00→20:32)
--- NOTE | 2018-07-21 07:10 | NUR ---
RECEIVED PT REPORT FROM BUSINESS BANKER NURSE. PT IS ALERT AND AWAKE, NO S/S OF ACUTE DISTRESS, HOWEVER C/O SOME PAIN IN THE R CHEST/BACK AREA FROM THE THORACENTESIS YESTERDAY. PT IS CURRENTLY ON ROOM AIR, SATTING 97%. SKIN INTACT. PT IV CAME OUT, WILL START A NEW ONE. FALL PRECAUTIONS IN PLACE. CALL LIGHT WITHIN REACH. WILL CONT TO MONITOR PT.
[2018-07-21 07:25] LABS: BASOPHILS % (AUTO) 0.3 % (0.0-2.0); EOSINOPHILS # (AUTO) 0.1 K/uL (0-0.4); EOSINOPHILS % (AUTO) 1.9 % (0.0-4.0); HEMATOCRIT 48.2 % (36-52); LYMPHOCYTES # (AUTO) 0.8 K/uL (2.0-11.5); LYMPHOCYTES % (AUTO) 13.1 % (20.5-51.1); MEAN CORPUSCULAR HEMOGLOBIN 27 pg (27-31); MEAN CORPUSCULAR HGB CONC 31 g/dL (33-37); MONOCYTES # (AUTO) 0.4 K/uL (0.8-1.0); MONOCYTES % (AUTO) 6.8 % (1.7-9.3); NEUTROPHILS # (AUTO) 4.7 K/uL (1.8-7.7); NEUTROPHILS % (AUTO) 77.9 % (42.2-75.2); PLATELET COUNT (AUTO) 125 K/uL (140-450); RED BLOOD CELL COUNT(AUTO) 5.48 MIL/uL (4.20-6.10); RED CELL DISTRIBUTION WIDTH 16.2 % (11.6-13.7)
--- NOTE | 2018-07-21 07:25 | NUR ---
ENDORSED CARE TO MICHAEL RN Dayshift NURSE AT BEDSIDE FOR CONTINUITY OF CARE, PT IN STABLE CONDITION.
[2018-07-21 08:00] VITALS: BP 147/85
--- NOTE | 2018-07-21 08:00 | NUR ---
PT HAVING CHEST XRAY AT THIS TIME
[2018-07-21 08:12] LABS: ANION GAP 6.6 (8-16); CREATININE 1.3 mg/dL (0.7-1.3); POTASSIUM 3.6 mmol/L (3.5-5.1)
[2018-07-21 08:29] LABS: MAGNESIUM 1.9 mg/dL (1.8-2.4); PHOSPHORUS 3.5 mg/dL (2.5-4.9)
--- NOTE | 2018-07-21 10:10 | NUR ---
NEW IV PLACED. L HAND 22 GAUGE, PATENT AND INTACT
[2018-07-21] MEDS: METOPROLOL 25 MG TAB PO SCH ×2 (10:34→20:32)
[2018-07-21] MEDS: ASPIRIN 81 MG TAB.CHEW PO SCH (10:34)
[2018-07-21] MEDS: LISINOPRIL 5 MG TAB PO SCH (10:35)
[2018-07-21] MEDS: hydrALAZINE 25 MG TAB PO SCH ×3 (10:35→16:49)
[2018-07-21] MEDS: CARVEDILOL 3.125 MG TAB PO SCH ×2 (10:36→20:32)
[2018-07-21] MEDS: LACTOBACILLUS RHAMNOSUS GG 1 EACH CAP PO SCH (10:36)
[2018-07-21] MEDS: NICOTINE TRANSD SYS 7 MG/24 HR PATCH TD SCH (10:38)
--- NOTE | 2018-07-21 10:43 | NUR ---
CONFIRMED WITH MD KIM TO GIVE SUBQ HEPARIN WITH PLATELETS 125
--- NOTE | 2018-07-21 11:14 | NUR ---
PT HAS BEEN OFF OF O2 SINCE 0800 THIS AM, AND SATS 99% ON ROOM AIR AT THIS TIME. PT DOES NOT WANT TO GET UP AND AMBULATE AT THIS TIME.
[2018-07-21 12:00] VITALS: BP 95/61
--- NOTE | 2018-07-21 12:40 | NUR ---
PT'S BP IS 95/61 AT THIS TIME. LASIX AND HYDRALAZINE HELD. WILL NOTIFY MD. PT IS STILL ON ROOM AIR, SATS 97%.
--- NOTE | 2018-07-21 14:10 | NUR ---
PT'S BP RECHECKED, BP IS 109/58 AT THIS TIME Addendum: 07/21/18 at 1605 by Martha Mcmanus RN IS AWARE
--- NOTE | 2018-07-21 16:20 | NUR ---
HAD PT TO STAND UP AND WALK AROUND THE ROOM WHILE MONITORING HIS O2 ON ROOM AIR. PT'S O2 WENT FROM 100% (RESTING) TO 95% WHILE UP WALKING. PT DID C/O SOME SOB.
[2018-07-21 16:30] VITALS: BP 99/61
--- NOTE | 2018-07-21 17:44 | NUR ---
PT HAS BEEN ON ROOM AIR ALL SHIFT SINCE ABOUT 08:00. PT'S O2 SATS HAVE REMAINED 97%-100%, HOWEVER, PT STILL C/O SOB WHEN CHANGING POSITIONS, STANDING UP, OR WALKING.
--- NOTE | 2018-07-21 19:20 | NUR ---
PT ENDORSED TO WEB SITE SPECIALIST NURSE IN STABLE CONDITION
--- NOTE | 2018-07-21 19:21 | NUR ---
RECEIVED REPORT FROM DAYSHIFT NURSE AT BEDSIDE FOR CONTINUITY OF CARE. PT AAOX4. PT IV NOTED L HAND 22G NS TKO. NO SOB NO S/S OF DISTRESS ON OXIMEZER 2L O2. BED LOWERED CALL LIGHT WITHIN REACH WILL CONTINUE TO MONITOR.
[2018-07-21 20:00] VITALS: BP 142/93
[2018-07-21] MEDS: NACL 0.9% 1,000 ML IV SCH (20:48)
[2018-07-22] VITALS: BP 116/72
[2018-07-22] MEDS: PIPER/TAZO 3.375GM/D5W PREMIX 50 ML IV SCH ×2 (01:04→05:39)
[2018-07-22 04:00] VITALS: BP 115/68
[2018-07-22] MEDS: FUROSEMIDE 40 MG/4 ML VIAL IVP SCH ×2 (05:39→13:00)
[2018-07-22 06:40] LABS: ANION GAP 1.6 (8-16); CARBON DIOXIDE 37.5 mmol/L (21-32); CREATININE 1.2 mg/dL (0.7-1.3); POTASSIUM 3.1 mmol/L (3.5-5.1)
[2018-07-22 06:42] LABS: MAGNESIUM 1.6 mg/dL (1.8-2.4); PHOSPHORUS 2.7 mg/dL (2.5-4.9)
--- NOTE | 2018-07-22 07:24 | NUR ---
ENDORSED REPORT TO DAYSHIFT NURSE AT BEDSIDE FOR CONTINUITY OF CARE.
--- NOTE | 2018-07-22 07:25 | NUR ---
RECEIVED REPORT FROM PM NURSE AT BEDSIDE. PT SLEEPING . IVF INFUSING WELL. PT IS ON STRICT I&O. UPDATED BOARD. PT HAS IV ACCESS ON RT WRIST 22G. NKA, SR. NO SIGN OF DISTRESS NOTED. WILL CONTINUE TO MONITOR PT.
[2018-07-22 08:00] VITALS: BP 115/77
[2018-07-22] MEDS ORDERED: MAG SULF 2000 MG/WATER PREMIX 50 ML IV ONE (08:55)
[2018-07-22] MEDS ORDERED: MAG SULF 2000 MG/WATER PREMIX 50 ML IV SCH (09:00)
[2018-07-22] MEDS ORDERED: AZIT500T4 PO (09:04)
[2018-07-22] MEDS ORDERED: HYDR-4420 PO (09:04)
[2018-07-22] MEDS ORDERED: LACT10CA PO (09:04)
[2018-07-22] MEDS ORDERED: APIX5TAB PO (09:04)
[2018-07-22] MEDS ORDERED: CARV3.122 PO (09:04)
[2018-07-22] MEDS: LISINOPRIL 5 MG TAB PO SCH (09:04)
[2018-07-22] MEDS ORDERED: FURO-570 PO (09:04)
[2018-07-22] MEDS ORDERED: AMOX1TER15 PO (09:04)
[2018-07-22] MEDS: CARVEDILOL 3.125 MG TAB PO SCH (09:04)
[2018-07-22] MEDS: LACTOBACILLUS RHAMNOSUS GG 1 EACH CAP PO SCH (09:05)
[2018-07-22] MEDS: hydrALAZINE 25 MG TAB PO SCH ×2 (09:05→13:00)
[2018-07-22] MEDS: METOPROLOL 25 MG TAB PO SCH (09:06)
--- NOTE | 2018-07-22 09:15 | NUR ---
ADMINISTERED MEDS TO PT ORDERED. TOLERATED WELL. PT DENIES ANY DISTRESS OR PAIN. LYING COMFORTABLY;Y IN HIS BED. CALL LIGHT WITHIN PT REACH. INFORMED TO USE CALL LIGHT FOR ANY HELP. WILL CONTINUE TO MONITOR PT.
[2018-07-22 09:18] LABS: BASOPHILS % (AUTO) 0.7 % (0.0-2.0); EOSINOPHILS # (AUTO) 0.2 K/uL (0-0.4); EOSINOPHILS % (AUTO) 3.1 % (0.0-4.0); HEMATOCRIT 42.7 % (36-52); HEMOGLOBIN 13.3 g/dL (12.0-18.0); LYMPHOCYTES # (AUTO) 0.5 K/uL (2.0-11.5); MEAN CORPUSCULAR HEMOGLOBIN 27 pg (27-31); MEAN CORPUSCULAR HGB CONC 31 g/dL (33-37); MEAN CORPUSCULAR VOLUME 86.5 fL (80-94); MONOCYTES # (AUTO) 0.3 K/uL (0.8-1.0); MONOCYTES % (AUTO) 5.8 % (1.7-9.3); NEUTROPHILS # (AUTO) 3.9 K/uL (1.8-7.7); NEUTROPHILS % (AUTO) 80.4 % (42.2-75.2); PLATELET COUNT (AUTO) 111 K/uL (140-450); RED BLOOD CELL COUNT(AUTO) 4.93 MIL/uL (4.20-6.10); RED CELL DISTRIBUTION WIDTH 16.1 % (11.6-13.7); WHITE BLOOD COUNT (AUTO) 4.9 K/uL (4.8-10.8)
[2018-07-22] MEDS: ASPIRIN 81 MG TAB.CHEW PO SCH (09:18)
[2018-07-22] MEDS ORDERED: POTASSIUM CHLORIDE 10 MEQ TABER PO SCH (09:30)
--- NOTE | 2018-07-22 11:19 | NUR ---
CALLED DR. SEGOVIA'S OFFICE,[phone]. SPOKE WITH [employer]. SHE SAID THIS PATIENT IS ASSIGNED TO THEM, BUT HAS NEVER COME IN SO HE IS NOT ESTABLISHED. THE PATIENT HAD A MEDICAL CARD WITH HIM FOR [facility], WITH PROVIDER PHONE [phone]. I CALLED AND WAS ERMELINDA THIS WAS THE [facility] AND THAT THE Addendum: 07/22/18 at 1124 by Shahida Handy CM CONTINUATION FROM ABOVE NOTE. AND THAT THE PATIENT WAS LAST SEEN IN 2011 THERE IN [place]. WAS TOLD HE WAS TO FOLLOW UP WITH HIS ASSIGNED PCP, WHICH WAS DR. SEGOVIA. I INFORMED DR. MANUEL. HE WILL INFORM THE PATIENT THAT IF HE WANTS TO CHANGE HIS PCP, HE NEEDS TO CALL [facility]., .
[2018-07-22 12:00] VITALS: BP 85/56
[2018-07-22] MEDS: NICOTINE TRANSD SYS 7 MG/24 HR PATCH TD SCH (12:00)
--- NOTE | 2018-07-22 12:28 | NUR ---
RECEIVED A CALL FROM SULMA ELLIS IN ADMITTING AND SHE TOLD ME THAT THIS PATIENT HAS IPA, VANTAGE. I CALLED [facility] AT [phone] AND SPOKE WITH TEENA. SHE SAID THAT THIS PATIENT IS THEIR'S. I ASKED HER ABOUT THE PATIENT'S PCP. SHE SAID DR. DR. SEGOVIA IS THE PCP. SHE SAID THAT IF HE WANTS TO CHANGE THE PCP, HE NEEDS TO CALL THE [facility]. SHE SAID THE NUMBER TO [facility], . WILL INFORM DR. OVERTON.
--- NOTE | 2018-07-22 12:30 | NUR ---
ASSESSED PT VS . BP 85/56. OFFERED PT LUNCH. PT UP AND WENT TO REST ROOM. CALL LIGHT WITHIN PT REACH. ALL SAFETY MEASURED IN PLACE. INFORMED PT TO MOVE SLOWLY, MIGHT FELL DIZZY PT HAS LOW BLOOD PRESSURE. VERBALIZED UNDERSTANDING. NO SIGN OF DISTRESS NOTED. WILL CONTINUE TO MONITOR PT.
--- NOTE | 2018-07-22 13:30 | NUR ---
CHECKED ON PT . BP 89/56. ASKED PT TO CHANGE THE POSITION. INFORMED JAY ABOUT HIS DISCHARGE PLAN. AGREES WITH PLAN. PT TO CALL THE FAMILY MEMBER TO FOR [employer]. INFORMED PT TO LET KNOW WHEN FAMILY ARRIVES FOR [employer]. VERBALIZED UNDERSTANDING. WILL CONTINUE TO MONITOR PT.
--- NOTE | 2018-07-22 15:30 | NUR ---
CHECKED ON PT. PT LYING ON HIS BED. BP 97/65. STATES FAMILY MEMBER INFORMED, WAITING FOR THE RIDE TO GO HOME. ALL THE DISCHARGE PAPER SIGNED AND INSTRUCTION PROVIDED. WILL CONTINUE TO MONITOR PT.
--- NOTE | 2018-07-22 17:00 | NUR ---
PT DISCHARGED TO HOME . PT FAMILY AT THE BEDSIDE. GAVE ALL THE DISCHARGE INSTRUCTION AND THE PAPER WORK. EDUCATED PT TO MAKE SURE TO FOLLOW UP WITH THE PRIMARY CARE PROVIDER INSTRUCTED IN THE DISCHARGE PAPER. INFORMED PT TO STRICTLY FOLLOW THE MEDICATION REGIMEN PROVIDED BY THE MD. VERBALIZED UNDERSTANDING. PT WENT HOME WITH ALL HIS BELONGINGS AND THE DISCHARGE PACKET. WHEELED OUT PT TO THE LOBBY . PT STABLE, FULL CODE AND WAS ABLE TO COMMUNICATE .
== END 2018-07-22 17:00 | disposition home or self-care (01) | DRG 720 ==
LOC: MED 17:30 → MTU 20:25
PROVIDERS: ADMIT General Practice; ATTEND General Practice
PROC: 5A09357 Assistance with Respiratory Ventilation, Less than 24 Consecutive Hours, Continuous Positive Airway Pressure (ICD-10-PCS; 2018-07-18)
PROC: 0W993ZZ Drainage of Right Pleural Cavity, Percutaneous Approach (ICD-10-PCS; principal; 2018-07-19)
DX: A41.9 Sepsis, unspecified organism (principal); I21.A1 Myocardial infarction type 2; J96.00 Acute respiratory failure, unspecified whether with hypoxia or hypercapnia; I50.43 Acute on chronic combined systolic (congestive) and diastolic (congestive) heart failure; E44.0 Moderate protein-calorie malnutrition; I42.9 Cardiomyopathy, unspecified; E83.42 Hypomagnesemia; J18.1 Lobar pneumonia, unspecified organism; J90 Pleural effusion, not elsewhere classified; I11.0 Hypertensive heart disease with heart failure; Z68.23 Body mass index [BMI] 23.0-23.9, adult; F17.210 Nicotine dependence, cigarettes, uncomplicated; Z83.3 Family history of diabetes mellitus; E88.09 Other disorders of plasma-protein metabolism, not elsewhere classified; Z91.19 Patient's noncompliance with other medical treatment and regimen
CPT/HCPCS: 36415; 71045; 76604; 76942; 80048; 80053; 80076; 80305; 81001; 82150; 82945; 83036; 83605; 83615; 83690; 83735; 83880; 84100; 84157; 84443; 84484; 85025; 85610; 85730; 87040; 87070; 87075; 87081; 87205; 88305; 88313; 88342; 89051; 93005; 94660; 99285; J1644; J1940; J1956; J2001; J2270; J2543; J3475; J7030; J7060; Q0092

== ENCOUNTER 2018-12-19 09:46 | Inpatient (IN) | payer MEDICAID, OTHER ==
[~2018-12-19] VITALS: Ht 165.1 cm; Wt 67.6 kg
[~2018-12-19 09:46] MED LIST changes: +APIX5TAB PO; +CARV3.122 PO; +HYDR-4420 PO; +LACT10CA PO; -METO25TA PO
[2018-12-19 10:28] VITALS: BP 170/116
--- NOTE | 2018-12-19 10:38 | NUR ---
PT REPORTS NOT HAVING HIS MEDICATIONS X3 MONTHS. PT OUT OF LISINOPRIL 5MG, PRAVASTATIN 10MG, POTASSIUM 10MEQ, AND VIT D 1000IU. PT REPORTS SOB WITH ACTIVITY. RR EVEN, NON-LABORED, BREATH SOUNDS CLEAR, NO EDEMA PRESENT. VSS. ER MD TO SEE PT. MEDHX:HTN, DM, HF
--- NOTE | 2018-12-19 10:50 | NUR ---
pt states he does not have a primary care doctor and has not taken his medication in some time. pt has a bag full of medication and comes to ER for refills list of pmd surrounding our area handed to pt
--- NOTE | 2018-12-19 12:32 | NUR ---
Dr. Peacock evaluating patient.
--- NOTE | 2018-12-19 12:33 | NUR ---
PT TO ER BED 9
[2018-12-19] MEDS ORDERED: NITROGLYCERIN 2% 1 GM PKT TP ONE (12:35)
[2018-12-19] MEDS ORDERED: ENALAPRILAT 2.5 MG/2 ML VIAL IVP ONE (12:35)
[2018-12-19] MEDS ORDERED: ASPIRIN 81 MG TAB.CHEW PO ONE (12:35)
[2018-12-19 13:06] LABS: BASOPHILS % (AUTO) 0.6 % (0.0-2.0); EOSINOPHILS % (AUTO) 0.3 % (0.0-4.0); HEMATOCRIT 44.5 % (36-52); HEMOGLOBIN 14.4 g/dL (12.0-18.0); LYMPHOCYTES # (AUTO) 0.9 K/uL (2.0-11.5); LYMPHOCYTES % (AUTO) 18.8 % (20.5-51.1); MEAN CORPUSCULAR HEMOGLOBIN 30 pg (27-31); MEAN CORPUSCULAR HGB CONC 32 g/dL (33-37); MEAN CORPUSCULAR VOLUME 93.2 fL (80-94); MONOCYTES # (AUTO) 0.5 K/uL (0.8-1.0); MONOCYTES % (AUTO) 9.3 % (1.7-9.3); NEUTROPHILS # (AUTO) 3.5 K/uL (1.8-7.7); PLATELET COUNT (AUTO) 141 K/uL (140-450); RED BLOOD CELL COUNT(AUTO) 4.78 MIL/uL (4.20-6.10); RED CELL DISTRIBUTION WIDTH 14.9 % (11.6-13.7); WHITE BLOOD COUNT (AUTO) 4.9 K/uL (4.8-10.8)
--- NOTE | 2018-12-19 13:21 | NUR ---
INFORMED DR. NOLASCO OF POSSIBLE ST ELEVATION ON BEDSIDE REGISTRATION SCHEDULING SPECIALIST. PER DR. NOLASCO, HE HAS SEEN THE PT EKG AND IS AWARE. PT IS NOT C/O CP AT THIS TIME.
[2018-12-19 13:26] LABS: ANION GAP 16.5 (8-16); CARBON DIOXIDE 23.3 mmol/L (21-32); CREATININE 1.2 mg/dL (0.7-1.3); POTASSIUM 3.8 mmol/L (3.5-5.1)
[2018-12-19 13:29] LABS: PROTHROMBIN TIME 14.5 secs (10.8-13.4)
[2018-12-19 13:32] LABS: ALBUMIN 3.1 g/dL (3.4-5.0); TOTAL BILIRUBIN 1.8 mg/dL (0.0-1.0)
--- NOTE | 2018-12-19 14:30 | NUR ---
PT RESTING IN BED, SITTING UP, STATES HE DOES NOT HAVE PAIN AT THIS TIME
[2018-12-19] MEDS ORDERED: ONDANSETRON 4 MG/2 ML VIAL IM/IVP PRN (15:30)
[2018-12-19] MEDS ORDERED: ACETAMINOPHEN 325 MG TAB PO PRN (15:30)
[2018-12-19] MEDS ORDERED: HYDROcodone/APAP 5/325 MG 1 TAB TAB PO PRN (15:30)
--- NOTE | 2018-12-19 16:00 | NUR ---
PROVIDED PT WITH WATER AND BLANKET PER REQUEST
[2018-12-19] MEDS ORDERED: NITROGLYCERIN 0.4 MG TAB SL PRN ×2 (16:15→17:55)
[2018-12-19 16:34] LABS: CHOL/HDL RATIO 3.2 (1-4.5); MAGNESIUM 1.6 mg/dL (1.8-2.4); PHOSPHORUS 3.5 mg/dL (2.5-4.9); THYROID STIMULATING HORMONE 3.11 uIU/mL (0.34-3.74)
[2018-12-19] MEDS ORDERED: MAGNESIUM OXIDE 400 MG TAB PO SCH (17:00)
--- NOTE | 2018-12-19 17:05 | NUR ---
Patient will be admitted to care of DR. QUINONES. Admited to TELEMETRY. Will go to room 122-B. Belongings list completed. Report to [facility].
--- NOTE | 2018-12-19 17:05 | NUR ---
PT ARRIVED ON THE UNIT. PT APPEARS STABLE AND IN NO APPARENT DISTRESS. PT AMBULATED TO RESTROOM ON HIS OWN. TOOK PT VITALS. ORIENTED PT TO ROOM. ALL SAFETY MEASURES ARE IN PLACE. WILL CONTINUE TO MONITOR.
[2018-12-19] MEDS ORDERED: NACL 0.9% 1,000 ML IV SCH (17:53)
[2018-12-19] MEDS ORDERED: hydrALAZINE 25 MG TAB PO SCH ×2 (18:00)
[2018-12-19] MEDS: FUROSEMIDE 40 MG/4 ML VIAL IVP SCH (18:37)
[2018-12-19 19:02] VITALS: BP 151/108
--- NOTE | 2018-12-19 19:30 | NUR ---
ENDORSED PT TO PM RN. PT IS STABLE AND IN NO APPARENT DISTRESS. ALL SAFETY MEASURES ARE IN PLACE.
--- NOTE | 2018-12-19 19:31 | NUR ---
RECEIVED REPORT FROM DAY SHIFT NURSE BATSHEVA AT BEDSIDE. PT RESTING IN BED, AOX4, ON ROOM AIR WITH LEFT AC #20G RUNNING NS @60ML/HR. DISCUSSED PLAN OF CARE AND PT VERBALIZED UNDERSTANDING. NO S/S OF RESPIRATORY DISTRESS OR DISCOMFORT NOTED AT THIS TIME. BED IN LOWEST POSITION, BED BREAKS ON, BOTH SIDE RAILS UP. BEDSIDE TABLE AND CALL LIGHT WITHIN REACH. WILL CONTINUE TO MONITOR. Addendum: 12/20/18 at 0038 by Liseth Coyle RN PLEASE DISREGARD IVF NOTE. PT AL.
[2018-12-19 20:00] VITALS: BP 154/99
--- NOTE | 2018-12-19 20:00 | NUR ---
VITAL SIGNS TAKEN AND TOLERATED WELL. NO S/S OF RESPIRATORY DISTRESS OR DISCOMFORT NOTED AT THIS TIME. WILL CONTINUE TO MONITOR.
[2018-12-19] MEDS: SIMVASTATIN 20 MG TAB PO SCH (20:44)
[2018-12-19] MEDS: CARVEDILOL 3.125 MG TAB PO SCH (20:44)
--- NOTE | 2018-12-19 20:44 | NUR ---
SCHEDULED MEDICATION COREG AND ZOCOR GIVEN AND TOLERATED WELL. NO S/S OF RESPIRATORY DISTRESS OR DISCOMFORT NOTED AT THIS TIME. WILL CONTINUE TO MONITOR.
[2018-12-19] MEDS: ZOLPIDEM 5 MG TAB PO PRN (21:35)
--- NOTE | 2018-12-19 21:35 | NUR ---
PT REQUESTING SLEEPING AID. AMBIEN GIVEN AND TOLERATED WELL. NO S/S OF RESPIRATORY DISTRESS OR DISCOMFORT NOTED AT THIS TIME. WILL CONTINUE TO MONITOR.
--- NOTE | 2018-12-19 23:00 | NUR ---
PT SLEEPING IN BED. NO S/S OF RESPIRATORY DISTRESS OR DISCOMFORT NOTED AT THIS TIME. WILL CONTINUE TO MONITOR.
[2018-12-20] VITALS: BP 142/98
--- NOTE | 2018-12-20 | NUR ---
VITAL SIGNS TAKEN AND TOLERATED WELL. NO S/S OF RESPIRATORY DISTRESS OR DISCOMFORT NOTED AT THIS TIME. WILL CONTINUE TO MONITOR.
--- NOTE | 2018-12-20 02:00 | NUR ---
PT CONTINUES TO SLEEP IN BED. NO S/S OF RESPIRATORY DISTRESS OR DISCOMFORT NOTED AT THIS TIME. WILL CONTINUE TO MONITOR.
[2018-12-20 04:00] VITALS: BP 133/87
--- NOTE | 2018-12-20 04:00 | NUR ---
VITAL SIGNS TAKEN AND TOLERATED WELL. NO S/S OF RESPIRATORY DISTRESS OR DISCOMFORT NOTED AT THIS TIME. WILL CONTINUE TO MONITOR.
--- NOTE | 2018-12-20 06:00 | NUR ---
PT AWAKE BRUSHING HAIR IN FRONT OF MIRROR. NO S/S OF RESPIRATORY DISTRESS OR DISCOMFORT NOTED AT THIS TIME. WILL CONTINUE TO MONITOR.
[2018-12-20 06:01] LABS: ANION GAP 13.9 (8-16); CARBON DIOXIDE 26.8 mmol/L (21-32); CREATININE 1.1 mg/dL (0.7-1.3); POTASSIUM 3.7 mmol/L (3.5-5.1)
[2018-12-20 06:08] LABS: CHOL/HDL RATIO 3.2 (1-4.5)
[2018-12-20 06:26] LABS: BASOPHILS % (AUTO) 0.4 % (0.0-2.0); HEMATOCRIT 37.1 % (36-52); HEMOGLOBIN 11.9 g/dL (12.0-18.0); LYMPHOCYTES # (AUTO) 1.1 K/uL (2.0-11.5); LYMPHOCYTES % (AUTO) 23.2 % (20.5-51.1); MEAN CORPUSCULAR HEMOGLOBIN 29 pg (27-31); MEAN CORPUSCULAR HGB CONC 32 g/dL (33-37); MEAN CORPUSCULAR VOLUME 92.1 fL (80-94); MONOCYTES # (AUTO) 0.7 K/uL (0.8-1.0); MONOCYTES % (AUTO) 14.9 % (1.7-9.3); NEUTROPHILS # (AUTO) 2.9 K/uL (1.8-7.7); NEUTROPHILS % (AUTO) 60.5 % (42.2-75.2); PLATELET COUNT (AUTO) 114 K/uL (140-450); RED BLOOD CELL COUNT(AUTO) 4.03 MIL/uL (4.20-6.10); RED CELL DISTRIBUTION WIDTH 14.2 % (11.6-13.7); WHITE BLOOD COUNT (AUTO) 4.8 K/uL (4.8-10.8)
--- NOTE | 2018-12-20 07:45 | NUR ---
RECEIVED HAND OFF REPORT FROM PRESS ASSISTANT AND FEEDER NURSE. PT IS AWAKE AND APPEARS STABLE AND IN NO APPARENT DISTRESS. ALL SAFETY MEASURES ARE IN PLACE. IV SITE PATENT AND SHOWS NO SIGNS OF INFLAMMATION OR INFILTRATION. WILL CONTINUE TO MONITOR.
[2018-12-20 08:00] VITALS: BP 146/90
--- NOTE | 2018-12-20 08:13 | NUR ---
PATIENT HAS BEEN SCREENED AND CATEGORIZED MODERATE NUTRITION RISK. PATIENT WILL BE SEEN WITHIN 3-5 DAYS OF ADMISSION. 12/22/18[address]
--- NOTE | 2018-12-20 08:42 | NUR ---
HELD HEPARIN PLT COUNT [phone].
[2018-12-20] MEDS: hydrALAZINE 25 MG TAB PO SCH ×3 (08:57→17:28)
[2018-12-20] MEDS: ASPIRIN 81 MG TAB.CHEW PO SCH (08:57)
[2018-12-20] MEDS: CARVEDILOL 3.125 MG TAB PO SCH ×2 (08:57→20:34)
[2018-12-20] MEDS: POTASSIUM CHLORIDE 10 MEQ TABER PO SCH (08:57)
[2018-12-20] MEDS: FUROSEMIDE 40 MG/4 ML VIAL IVP SCH ×2 (08:58→17:28)
[2018-12-20] MEDS ORDERED: AZITHROMYCIN 500 MG in DEXTROSE 5% 250 ML IV SCH (09:00)
[2018-12-20] MEDS ORDERED: LISINOPRIL 5 MG TAB PO SCH (09:00)
[2018-12-20] MEDS ORDERED: ASPIRIN 81 MG TAB.CHEW PO SCH (09:00)
--- NOTE | 2018-12-20 09:00 | NUR ---
FREQUENT ROUNDING ON PT PT IS STABLE AND IN NO APPARENT DISTRESS. ALL SAFETY MEASURES ARE IN PLACE WILL CONTINUE TO MONITOR.
--- NOTE | 2018-12-20 10:56 | NUR ---
FREQUENT ROUNDING ON PT APPEARS STABLE AND IN NO APPARENT DISTRESS. ALL SAFETY MEASRUES ARE IN PLACE WILL CONTINUE TO MONITOR.
[2018-12-20 12:00] VITALS: BP 115/74
[2018-12-20] MEDS ORDERED: FUROSEMIDE 20 MG/2 ML VIAL IVP SCH (15:00)
--- NOTE | 2018-12-20 15:10 | NUR ---
PT HAD DIFFICULTY BREATHING AND DIAPHORETIC. PLACED PT ON NASAL CANULA 4L 02 DR. CEDILLO AT BEDSIDE. BLOOD PRESSURE 99/71. RT AT BEDSIDE AND PLACED PT ON 15L 02 VIA VENTURI MASK 50%. PT STATING AT 99% PT APPEARS STABLE AND IN NO APPARENT DISTRESS.
[2018-12-20 16:00] VITALS: BP 139/99
--- NOTE | 2018-12-20 17:25 | NUR ---
FREQUENT ROUNDING ON PT PT APPEARS STABLE AND IN NO APPARENT DISTRESS. ALL SAFETY MEASURES ARE IN PLACE. PT STATED HE FEELS THAT HIS BREATHING IS EASIER. PT IS ON 15L O2 VIA VENTURI MASK AT 50%. WILL CONTINUE TO MONITOR.
[2018-12-20] MEDS: SPIRONOLACTONE 25 MG TAB PO SCH (17:29)
--- NOTE | 2018-12-20 19:30 | NUR ---
ENDORSED PT TO PM RN. PT APPEARS STABLE AND IN NO APPARENT DISTRESS. ALL SAFETY MEASURES ARE IN PLACE. PT IS STATING AT 100% SPO2. VENTURI MASK ON AT 15L 50%.
--- NOTE | 2018-12-20 19:30 | NUR ---
RECEIVED ENDORSEMENT FROM DARLENE ANDUJAR DAYSHIFT NURSE AT BEDSIDE FOR CONTINUITY OF CARE, PT IN STABLE CONDITION.
--- NOTE | 2018-12-20 19:30 | NUR ---
DECREASED O2 FROM 50% 15L/M VENTURI TO 40% 12 L/M. SPO2 MAINTAINED AT 100%. PATIENT IS AWAKE, ALERT AND ORIENTED. PATIENT STATED THAT HE COULD FEEL THE DIFFERENCE IN THE FLOW BUT DID NOT FEEL SOB. WILL CONTINUE TO MONITOR.
[2018-12-20 20:00] VITALS: BP 133/92
--- NOTE | 2018-12-20 20:00 | NUR ---
PT IN BED WITH VENTI MASK ON. PT REPORTED THAT THEY HAD DROPPED HIS LEVEL OF SUPPLEMENTAL O2 FROM 15 TO 12, BUT HE SAID THAT AT FIRST IT OK BUT WHEN THEY FIRST LOWERED HI S SUPPLIMENTAL O2 LEVEL FORM 15 TO 12. HE ASKED PRIMARY NURSE IF HE COULD BUMP IT BACK UP TO 15 BECAUSE HE FEELS ITS SLIGHTLY MORE DIFFICULT TO BREATHE. 02 LEVEL IS 98% WITH 12 LITERS BUT DROPPED WHEN HE WAS SPEAKING TO BETWEEN 89 TO 91. OFFERED TO CALL RESPIRATORY , BUT PT DECLINED. SUPPLIMENTAL 02 WAS BROUGHT UP TO 13 AND PT SAID IT WAS A LITTLE BETTER BUT NOT MUCH. PT LEVEL BROUGHT BACK UP TO 15 LITERS AND PT SAID THAT WAS GOOD. 02 WAS STABILIZING AT 94%. OTHER V/S ARE T 97.7 P 94 R 18 B/P 133/92. BED LOW SIDE RAILS UP X2 AND CALL STREET N REACH.
[2018-12-20] MEDS: SIMVASTATIN 20 MG TAB PO SCH (20:35)
--- NOTE | 2018-12-20 21:00 | NUR ---
PT GIVEN DUE MEDS OF COREG AND ZOCOR MEDICATION EDUCATION PROVIDED. PLATELETS ARE LOW AT 114, SPOKE WITH DR. LEON, WHO SAID TO HOLD HEPARIN SHOT. ALL REQUESTED NEEDS ATTENDED BY STAFF AND CALL STREET IN REACH.
[2018-12-20] MEDS: ZOLPIDEM 5 MG TAB PO PRN (22:26)
--- NOTE | 2018-12-20 22:30 | NUR ---
PT REQUEST SLEEPING PILL AND WAS GIEN PO/PRN AMBIEN 5MG FOR INSOMNIA. RAKESH FROM LAB ALSO CALLED AND SAID THAT URINE DRUG SCREEN STILL PENDING. INFORMED PT THAT URINE WAS STILL NEED AND A FRESH URINAL PROVIDED AT BEDSIDE. PT VERBALIZED UNDERSTANDING.
[2018-12-21] VITALS: BP 123/84
--- NOTE | 2018-12-21 | NUR ---
PT IN BED ASLEEP BUT AROUSABLE TO NAME AND LIGHT TOUCH. V/S FOLLOWS T 97.0 P 94 R 18 B/P 123/84 02 94% ON 15 LITERS VIA VENTI MASK. NO S/S OF PAIN OR DISTRESS NOTED.
[2018-12-21 01:02] LABS: APPEARANCE,URINE CLEAR (CLEAR); BILIRUBIN,URINE NEGATIVE (NEGATIVE); BLOOD, URINE NEGATIVE (NEGATIVE); COLOR,URINE YELLOW (YELLOW); LEUKOCYTE ESTERASE ,URINE NEGATIVE (NEGATIVE); NITRITE, URINE NEGATIVE (NEGATIVE); PH,URINE 5.5 (5.0-9.0); UGLUCOSE NEGATIVE (NEGATIVE)
[2018-12-21 01:10] LABS: BARBITURATE, URINE NEG. ng/ml (NEG <=200); BENZODIAZEPINE, URINE NEG. ng/mL (NEG <=200); CANNABINOID, URINE NEG. ng/mL (NEG <=50); COCAINE, URINE NEG. ng/mL (NEG <=300); OPIATE, URINE NEG. ng/mL (NEG <=2000); PHENCYCLIDINE SCREEN,URINE NEG. ng/mL (NEG <=25)
--- NOTE | 2018-12-21 02:00 | NUR ---
PT IN BED ASLEEP NO S/S OF PAIN OR DISTRESS NOTED. VENTI MASK IN PLACE AND RUNNING 15 LITERS OF SUPPLEMENTAL O2. BED LOW AND SIDE RAILS UP X2
[2018-12-21 04:00] VITALS: BP 138/90
--- NOTE | 2018-12-21 04:00 | NUR ---
PT IN BED ASLEEP BUT AROUSABLE TO NAME AND LIGHT TOUCH. V/S FOLLOWS T 97.0 P 70 R 18 B/P 131/75 02 99% ON ROOM AIR. NO S/S OF PAIN OR DISTRESS NOTED. VENTI MASK IN PLACE AND RUNNING 15LITERS VIA N/C.
[2018-12-21 06:18] LABS: ANION GAP 12.1 (8-16); CARBON DIOXIDE 27.9 mmol/L (21-32)
[2018-12-21 06:19] LABS: BASOPHILS % (AUTO) 0.5 % (0.0-2.0); EOSINOPHILS # (AUTO) 0.1 K/uL (0-0.4); EOSINOPHILS % (AUTO) 0.9 % (0.0-4.0); HEMATOCRIT 38.7 % (36-52); HEMOGLOBIN 12.4 g/dL (12.0-18.0); LYMPHOCYTES # (AUTO) 1.3 K/uL (2.0-11.5); LYMPHOCYTES % (AUTO) 21.2 % (20.5-51.1); MEAN CORPUSCULAR HEMOGLOBIN 30 pg (27-31); MEAN CORPUSCULAR HGB CONC 32 g/dL (33-37); MEAN CORPUSCULAR VOLUME 92.8 fL (80-94); MONOCYTES # (AUTO) 0.8 K/uL (0.8-1.0); NEUTROPHILS # (AUTO) 3.9 K/uL (1.8-7.7); NEUTROPHILS % (AUTO) 64.4 % (42.2-75.2); PLATELET COUNT (AUTO) 125 K/uL (140-450); RED BLOOD CELL COUNT(AUTO) 4.17 MIL/uL (4.20-6.10); RED CELL DISTRIBUTION WIDTH 14.3 % (11.6-13.7); WHITE BLOOD COUNT (AUTO) 6.1 K/uL (4.8-10.8)
[2018-12-21 06:25] LABS: MAGNESIUM 1.6 mg/dL (1.8-2.4); PHOSPHORUS 3.7 mg/dL (2.5-4.9)
[2018-12-21] MEDS ORDERED: MAG SULF 2000 MG/WATER PREMIX 50 ML IV SCH (07:00)
--- NOTE | 2018-12-21 07:20 | NUR ---
REPORT GIVEN TO DARLENE ANDUJAR DAYSHIFT NURSE AT BEDSIDE FOR CONTINUITY OF CARE, PT IN STABLE CONDITION.
--- NOTE | 2018-12-21 07:30 | NUR ---
RECEIVED HAND OFF REPORT FROM IRIDOLOGIST NURSE PT IS AWAKE IN BED PT APPEARS STABLE AND IN NO APPARENT DISTRESS. ALL SAFETY MEASURES ARE IN PLACE WILL CONTINUE TO MONITOR. PT IS STATING WELL ON 15L 02 VIA VENTURI MASK AT 50%.
--- NOTE | 2018-12-21 07:55 | NUR ---
STARTED PT ON MAG IV. MAG IS ON A PRIMARY LINE. IV PUMP IS DATA LOCKED. WILL CONTINUE TO MONITOR.
[2018-12-21 08:00] VITALS: BP 146/95
[2018-12-21] MEDS: hydrALAZINE 25 MG TAB PO SCH ×3 (09:28→17:42)
[2018-12-21] MEDS: FUROSEMIDE 40 MG/4 ML VIAL IVP SCH ×2 (09:28→17:41)
[2018-12-21] MEDS: AZITHROMYCIN 250 MG TAB PO SCH (09:28)
[2018-12-21] MEDS: CARVEDILOL 3.125 MG TAB PO SCH ×2 (09:28→20:07)
[2018-12-21] MEDS: ASPIRIN 81 MG TAB.CHEW PO SCH (09:29)
[2018-12-21] MEDS: LISINOPRIL 10 MG TAB PO SCH (09:29)
[2018-12-21] MEDS: POTASSIUM CHLORIDE 10 MEQ TABER PO SCH (09:30)
[2018-12-21] MEDS: SPIRONOLACTONE 25 MG TAB PO SCH ×2 (09:30→17:41)
--- NOTE | 2018-12-21 09:56 | NUR ---
FREQUENT ROUNDING ON PT PT APPEARS STABLE AND IN NO APPARENT DISTRESS.ALL SAFETY MEASURES ARE IN PLACE WILL CONTINUE TO MONITOR.
--- NOTE | 2018-12-21 10:34 | NUR ---
PLACED PT ON HIGH FLOW NASAL CANULA. PLACED AT 40LPM AND 30% FIO2 WITH TEMP AT 30 DEGREES CELSIUS. PT TOLEATING WELL AND SATURATION IN HIGH 98-100%. WILL CONTINUE TO MONITOR PT
--- NOTE | 2018-12-21 11:27 | NUR ---
FREQUENT ROUNDING ON PT PT APPEARS STABLE AND IN NO APPARENT DISTRESS. ALL SAFETY MEASURES ARE IN PLACE. WILL CONTINUE TO MONITOR.
[2018-12-21 12:00] VITALS: BP 116/80
--- NOTE | 2018-12-21 13:21 | NUR ---
FREQUENT ROUNDING ON PT PT APPEARS STABLE AND IN NO APPARENT DISTRESS. ALL SAFETY MEASURES ARE IN PLACE WILL CONTINUE TO MONITOR.
--- NOTE | 2018-12-21 15:20 | NUR ---
FREQUENT ROUNDING ON PT PT APPEARS STABLE AND IN NO APPARENT DISTRESS. ALL SAFETY MEASURES ARE IN PLACE
--- NOTE | 2018-12-21 15:45 | NUR ---
ENTERED PT ROOM. PT WAS SITTING AT EDGE OF BED. PT HAD LABORED BREATHING AND STATED THAT HE WAS HAVING TROUBLE BREATHING. CALLED RT TO COME ASSES THE HIGH FLOW NASAL CANULA MACHINE. PT STATED HIS BREATHING WAS GETTING BETTER SITTING UP BP WAS WITHIN NORMAL LIMITS. AND BREATHING BECAME LESS LABORED. INSTRUCTED PT TO SIT UP
[2018-12-21 16:00] VITALS: BP 138/86
--- NOTE | 2018-12-21 17:25 | NUR ---
FREQUENT ROUNDING ON PT PT APPEARS STABLE AND IN NO APPARENT DISTRESS. ALL SAFETY MEASURES ARE IN PLACE. PT APPEARS TO BE NORMAL AND UNLABORED. WILL CONTINUE TO MONITOR.
--- NOTE | 2018-12-21 19:37 | NUR ---
ENDORSED PT TO FILM LIBRARIAN NURSE. PT APPEARS STABLE AND IN NO APPARENT DISTRESS. BREATHING IS UNLABORED.
--- NOTE | 2018-12-21 19:38 | NUR ---
RECEIVED REPORT FROM AM NURSE. PT SITTING UP IN BED WATCHING TV. PT AWAKE, ALERT AND ORIENTED X4. ABLE TO VERBALIZE NEEDS. PT ON HIGH FLOW NASAL CANNULA 35LPM, BREATHING UNLABORED. NO C/O DISTRESS AT THIS TIME. SAFETY MEASURES IN PLACE. URINAL AT BEDSIDE. PT EDUCATED ON HOW TO USE CALL LIGHT AND INSTRUCTED TO CALL NURSE IF PT NEEDS ANYTHING. PT VERBALIZED UNDERSTANDING. CALL LIGHT WITHIN REACH.
[2018-12-21 20:02] VITALS: BP 138/88
[2018-12-21] MEDS: SIMVASTATIN 20 MG TAB PO SCH (20:07)
[2018-12-21] MEDS: ZOLPIDEM 5 MG TAB PO PRN (20:07)
--- NOTE | 2018-12-21 20:11 | NUR ---
MEDICATIONS GIVEN. PT TOLERATED WELL. PT C/O 08/21 HEADACHE. TYLENOL GIVEN.
[2018-12-21] MEDS ORDERED: METOPROLOL 50 MG TAB PO SCH (21:00)
--- NOTE | 2018-12-22 00:01 | NUR ---
VITALS TAKEN. PT SLEEPING BUT EASILY AROUSABLE. PT O2 SATURATION 100% ON 40LPM HIGH FLOW N.C. CALLED RT TO LOWER LPM O2.
[2018-12-22 00:04] VITALS: BP 118/82
--- NOTE | 2018-12-22 02:10 | NUR ---
ROUNDED ON PT. PT SLEEPING, BREATHING UNLABORED. PT ON HIGH FLOW O2. CALL LIGHT WITHIN REACH.
[2018-12-22 04:00] VITALS: BP 121/89
--- NOTE | 2018-12-22 04:00 | NUR ---
VITALS TAKEN. PT SLEEPING BUT EASILY AWAKEN. PT 02 SATURATION 99% ON HIGH FLOW N.C 30LMP. URINAL EMPTIED. NO C/O DISCOMFORT.
[2018-12-22 05:49] LABS: ANION GAP 10.9 (8-16); CREATININE 1.2 mg/dL (0.7-1.3); POTASSIUM 3.9 mmol/L (3.5-5.1)
[2018-12-22 05:56] LABS: MAGNESIUM 1.7 mg/dL (1.8-2.4); PHOSPHORUS 3.7 mg/dL (2.5-4.9)
[2018-12-22 06:22] LABS: BASOPHILS % (AUTO) 0.4 % (0.0-2.0); EOSINOPHILS # (AUTO) 0.1 K/uL (0-0.4); EOSINOPHILS % (AUTO) 1.6 % (0.0-4.0); HEMATOCRIT 40.5 % (36-52); LYMPHOCYTES # (AUTO) 1.6 K/uL (2.0-11.5); LYMPHOCYTES % (AUTO) 25.3 % (20.5-51.1); MEAN CORPUSCULAR HEMOGLOBIN 30 pg (27-31); MEAN CORPUSCULAR HGB CONC 32 g/dL (33-37); MEAN CORPUSCULAR VOLUME 92.5 fL (80-94); MONOCYTES # (AUTO) 0.6 K/uL (0.8-1.0); MONOCYTES % (AUTO) 10.4 % (1.7-9.3); NEUTROPHILS # (AUTO) 3.9 K/uL (1.8-7.7); NEUTROPHILS % (AUTO) 62.3 % (42.2-75.2); PLATELET COUNT (AUTO) 129 K/uL (140-450); RED BLOOD CELL COUNT(AUTO) 4.38 MIL/uL (4.20-6.10); RED CELL DISTRIBUTION WIDTH 14.5 % (11.6-13.7); WHITE BLOOD COUNT (AUTO) 6.2 K/uL (4.8-10.8)
[2018-12-22] MEDS ORDERED: MAG SULF 2000 MG/WATER PREMIX 50 ML IV SCH (06:40)
--- NOTE | 2018-12-22 07:15 | NUR ---
ENDORSED PT TO AM NURSE. PT IN STABLE CONDITION
--- NOTE | 2018-12-22 07:16 | NUR ---
RECEIVED ENDORSEMENT FROM SPONGE MAKER NURSE. PATIENT IS AAOX4, EMIRATI SPEAKING. RESPIRATIONS ARE EVEN AND UNLABORED ON 30% FIO2 HIGH FLOW NC. PATIENT DENIES ANY PAIN OR SOB AT THIS TIME. RIGHT AC 20G INTACT AND SL. PLAN OF CARE WAS REVIEWED WITH PATIENT, PATIENT VERBALIZED UNDERSTANDING. SAFETY MEASURES IN PLACE, CALL LIGHT WITHIN REACH.
--- NOTE | 2018-12-22 07:38 | NUR ---
FOUND PT ASLEEP ON HFNC 35% O2. NO RESPIRATORY DISTRESS AT THIS TIME.
[2018-12-22 08:00] VITALS: BP 128/85
[2018-12-22] MEDS: POTASSIUM CHLORIDE 10 MEQ TABER PO SCH (08:14)
[2018-12-22] MEDS: ASPIRIN 81 MG TAB.CHEW PO SCH (08:15)
[2018-12-22] MEDS: LISINOPRIL 10 MG TAB PO SCH (08:15)
[2018-12-22] MEDS: SPIRONOLACTONE 25 MG TAB PO SCH ×2 (08:15→17:44)
[2018-12-22] MEDS: CARVEDILOL 3.125 MG TAB PO SCH ×2 (08:15→20:44)
[2018-12-22] MEDS: FUROSEMIDE 40 MG/4 ML VIAL IVP SCH ×2 (08:16→17:44)
[2018-12-22] MEDS: AZITHROMYCIN 250 MG TAB PO SCH (08:16)
[2018-12-22] MEDS: hydrALAZINE 25 MG TAB PO SCH ×3 (08:16→17:44)
--- NOTE | 2018-12-22 08:30 | NUR ---
ADMINISTERED SCHEDULED MEDICATIONS, PATIENT TOLERATED WELL. PATIENT DENIES PAIN, NO OTHER NEEDS AT THIS TIME.
--- NOTE | 2018-12-22 09:26 | NUR ---
TRIALING PT OFF HFNC TO RA. PT IS DOING WELL. PT'S O2 SAT IS 96% ON RA. HR 86. RR 20. NO RESP DISTRESS.
--- NOTE | 2018-12-22 10:20 | NUR ---
PATIENT RESTING IN BED. DENIES ANY PAIN, NO OTHER NEEDS AT THIS TIME.
[2018-12-22 12:00] VITALS: BP 127/76
--- NOTE | 2018-12-22 12:15 | NUR ---
PATIENT RESTING IN BED, WATCHING TELEVISION. NO OTHER NEEDS AT THIS TIME, WILL CONTINUE TO MONITOR.
--- NOTE | 2018-12-22 13:15 | NUR ---
ADMINISTERED SCHEDULED MEDICATION. PATIENT TOLERATED WELL. DENIES ANY PAIN AT THIS TIME, NO OTHER NEEDS AT THIS TIME.
--- NOTE | 2018-12-22 14:44 | NUR ---
12/22/18 RD INITIAL ASSESSMENT COMPLETED PLEASE REFER TO NUTRITION ASSESSMENT UNDER CARE ACTIVITY FOR ESTIMATED NUTRITIONAL NEEDS. 1. CONTINUE CARDIAC DIET TOLERATED 2. RD PROVIDED NUTRITION EDUCATION ON CHF AND FLUID INTAKE. PT ACCEPTED EDUCATION 3. RD TO FOLLOW-UP 5-7 DAYS, LOW RISK MICHAEL HAYES RD
--- NOTE | 2018-12-22 15:40 | NUR ---
PATIENT IS RESTING IN BED. DENIES ANY PAIN AT THIS TIME, NO OTHER NEEDS AT THIS TIME.
[2018-12-22 16:00] VITALS: BP 132/86
--- NOTE | 2018-12-22 17:25 | NUR ---
ADMINISTERED SCHEDULED MEDICATIONS. PATIENT TOLERATED WELL. NO OTHER NEEDS AT THIS TIME.
--- NOTE | 2018-12-22 19:10 | NUR ---
RECEIVED BEDSIDE REPORT FROM DAY SHIFT NURSE. NO SOB OR ANY RESPIRATORY DISTRESS NOTED. PT AMBULATORY. SKIN INTACT, WARM AND DRY TO TOUCH. IV SITE ON RAC, 20G, PATENT, INTACT, ASYMPTOMATIC. SAFETY PRECAUTION IN PLACE. BOARD UPDATED, POC REVIEWED WITH PT, PT VERBALIZED UNDERSTANDING. BED IN LOW POSITION, CALL LIGHT WITHIN REACH. WILL CONTINUE TO MONITOR.
--- NOTE | 2018-12-22 19:20 | NUR ---
ENDORSED TO S[employer] ATTENDANT NURSE FOR CONTINUITY OF CARE. PATIENT IS STABLE AT THIS TIME.
--- NOTE | 2018-12-22 19:21 | NUR ---
RECEIVED BEDSIDE REPORT FROM DAY SHIFT NURSE, TRINY. PATIENT IS AAOX4, AMBULATORY, BELARUSIAN SPEAKING. NO SOB NOTED ON ROOM AIR. PATIENT DENIES ANY PAIN AT THIS TIME. RIGHT AC 20G, SL, INTACT, PATENT, AND ASYMPTOMATIC. PLAN OF CARE WAS REVIEWED WITH PATIENT, PATIENT VERBALIZED UNDERSTANDING. SAFETY MEASURES IN PLACE, BED IN LOW POSITION, CALL LIGHT WITHIN REACH.
[2018-12-22 20:00] VITALS: BP 134/91
[2018-12-22] MEDS: SIMVASTATIN 20 MG TAB PO SCH (20:45)
--- NOTE | 2018-12-22 20:49 | NUR ---
GIVEN HEPARIN, COREG, ZOCOR ORDERED. PT TOLERATED WELL. WILL CONTINUE TO MONITOR.
--- NOTE | 2018-12-22 23:11 | NUR ---
PT SLEEPING IN BED. NO S/S OF SOB NOTED. BED IN LOW POSITION. CALL LIGHT WITHIN REACH. WILL CONTINUE TO MONITOR.
[2018-12-22] MEDS ORDERED: MAGNESIUM OXIDE 400 MG TAB PO SCH (23:15)
[2018-12-23] VITALS: BP 138/93
--- NOTE | 2018-12-23 | NUR ---
VS CHECKED, WITHIN PT'S BASELINE. GIVEN MAG-OX GIVEN ORDERED. PT TOLERATED WELL. BED IN LOW POSITION, CALL LIGHT WITHIN REACH. WILL CONTINUE TO MONITOR.
--- NOTE | 2018-12-23 02:20 | NUR ---
PT SLEEPING IN BED. NO ACUTE DISTRESS NOTED. WILL CONTINUE TO MONITOR.
[2018-12-23 04:00] VITALS: BP 128/79
--- NOTE | 2018-12-23 04:45 | NUR ---
PT SLEEPING IN BED. NO SOB OR ANY ACUTE DISTRESS NOTED. WILL CONTINUE TO MONITOR.
--- NOTE | 2018-12-23 05:58 | NUR ---
PT SLEEPING IN BED. NO SOB OR ANY ACUTE DISTRESS NOTED. BED IN LOW POSITION, CALL LIGHT WITHIN REACH.
[2018-12-23 06:08] LABS: ANION GAP 9.7 (8-16); CARBON DIOXIDE 30.1 mmol/L (21-32); CREATININE 1.2 mg/dL (0.7-1.3); POTASSIUM 3.8 mmol/L (3.5-5.1)
[2018-12-23 06:10] LABS: MAGNESIUM 1.8 mg/dL (1.8-2.4); PHOSPHORUS 3.5 mg/dL (2.5-4.9)
[2018-12-23 06:24] LABS: BASOPHILS % (AUTO) 0.4 % (0.0-2.0); EOSINOPHILS # (AUTO) 0.1 K/uL (0-0.4); EOSINOPHILS % (AUTO) 1.9 % (0.0-4.0); HEMATOCRIT 39.9 % (36-52); HEMOGLOBIN 12.8 g/dL (12.0-18.0); LYMPHOCYTES # (AUTO) 1.2 K/uL (2.0-11.5); LYMPHOCYTES % (AUTO) 20.5 % (20.5-51.1); MEAN CORPUSCULAR HEMOGLOBIN 29 pg (27-31); MEAN CORPUSCULAR HGB CONC 32 g/dL (33-37); MEAN CORPUSCULAR VOLUME 91.4 fL (80-94); MONOCYTES # (AUTO) 0.6 K/uL (0.8-1.0); MONOCYTES % (AUTO) 9.6 % (1.7-9.3); NEUTROPHILS # (AUTO) 3.9 K/uL (1.8-7.7); NEUTROPHILS % (AUTO) 67.6 % (42.2-75.2); PLATELET COUNT (AUTO) 143 K/uL (140-450); RED BLOOD CELL COUNT(AUTO) 4.36 MIL/uL (4.20-6.10); RED CELL DISTRIBUTION WIDTH 14.1 % (11.6-13.7); WHITE BLOOD COUNT (AUTO) 5.8 K/uL (4.8-10.8)
--- NOTE | 2018-12-23 07:15 | NUR ---
ENDORSED PT TO DAY SHIFT NURSE. PT IN STABLE CONDITION.
--- NOTE | 2018-12-23 07:16 | NUR ---
RECEIVED REPORT FROM NIGHTSHIFT RNKVNG. PATIENT SLEEPING. VISIBLE CHEST RISE, NO SIGNS OF DISTRESS ON 30L HIGH FLOW NC. SAFETY PRECAUTIONS IN PLACE.
[2018-12-23 08:00] VITALS: BP 138/72
--- NOTE | 2018-12-23 08:06 | NUR ---
RECEIVED PT ON ROOM AIR SPO2 95%. PT STATES HE IS NOT SOB. WILL CONTINUE TO MONITOR.
[2018-12-23] MEDS: hydrALAZINE 25 MG TAB PO SCH ×3 (08:56→17:56)
[2018-12-23] MEDS: ASPIRIN 81 MG TAB.CHEW PO SCH (08:56)
[2018-12-23] MEDS: SPIRONOLACTONE 25 MG TAB PO SCH ×2 (08:56→17:57)
[2018-12-23] MEDS: FUROSEMIDE 40 MG/4 ML VIAL IVP SCH ×2 (08:56→17:57)
[2018-12-23] MEDS: CARVEDILOL 3.125 MG TAB PO SCH (08:57)
[2018-12-23] MEDS: AZITHROMYCIN 250 MG TAB PO SCH (08:58)
[2018-12-23] MEDS ORDERED: LISINOPRIL 10 MG TAB PO SCH (09:00)
[2018-12-23] MEDS: POTASSIUM CHLORIDE 10 MEQ TABER PO SCH (09:10)
--- NOTE | 2018-12-23 09:10 | NUR ---
ADMINISTERED SCHEDULED MEDICATIONS. PATIENT TOLERATED WELL. PATIENT RESTING IN BED ON RA, SPO2 IS 95%. SAFETY PRECAUTIONS IN PLACE. WILL CONTINUE TO MONITOR.
[2018-12-23] MEDS ORDERED: LISI10TA11 PO (11:14)
[2018-12-23] MEDS ORDERED: SPIR25TA PO (11:14)
[2018-12-23] MEDS ORDERED: ASPI81CT95 PO (11:14)
--- NOTE | 2018-12-23 11:15 | NUR ---
PATIENT AMBULATED TO RESTROOM, NO SIGNS OF DISTRESS ON RA. WILL CONTINUE TO MONITOR.
[2018-12-23 12:10] VITALS: BP 123/73
--- NOTE | 2018-12-23 12:15 | NUR ---
PATIENT EATING LUNCH, NO SIGNS OF DISTRESS ON RA. BED LOW, CALL LIGHT IN REACH.
--- NOTE | 2018-12-23 12:50 | NUR ---
ADMINISTERED SCHEDULED MEDICATIONS, PATIENT TOLERATED WELL. PATIENT WAS AMBULATING AROUND ROOM, CHECKED SPO2 IT WAS 89% ON RA DURING AMBULATION. HAD PATIENT SIT AND REST FOR A FEW MINUTES. SPO2 98% ON ROOM AIR WHILE SITTING. AMBULATED PATIENT AROUND UNIT TO MEASURED SPO2 DURING ACTIVITY. SPO2 DROPPED TO 89% WITHIN 20 FEET, THEN TO 77% IN THE NEXT 20 FEET, THEN TO 69% IN THE NEXT 20 FEET. PATIENT STATED HE FELT DIZZY AND I RETURNED HIM SAFELY TO HIS BED. PATIENT SPO2 KETAN TO 91% WITHIN ONE MINUTE OF SITTING. AND KETAN TO 97% AFTER 2 MINUTES. PATIENT WAS TIRED AND STARTED TO DESATURATE AGAIN. PLACED PATIENT BACK ON HIGH FLOW NC.
--- NOTE | 2018-12-23 13:36 | NUR ---
MARCELLA contacted [facility] to arrange home oxygen for patient. MARCELLA spoke to Jorge [phone]. Jorge requested for doctor's orders to be sent to [facility] Fax - [phone] and to Bryon . Jorge stated that he would call back once the authorization is made. MARCELLA/PARTH will follow up as needed.
--- NOTE | 2018-12-23 14:23 | NUR ---
MARCELLA contacted [employer] [phone] to follow up faxed clinicals for patient's home oxygen. Spoke to Deborah who provided her direct line [phone]. Per Deborah, additional clinical information would be needed for authorization to be provided. MARCELLA faxed additional clinicals to [phone]. MARCELLA/PARTH will follow up as needed.
--- NOTE | 2018-12-23 14:30 | NUR ---
PATIENT SLEEPING IN BED, NO SIGNS OF DISTRESS ON 30L HIGH FLOW NC, SPO2 95%. WILL CONTINUE TO MONITOR.
--- NOTE | 2018-12-23 15:07 | NUR ---
MARCELLA contacted [facility] and spoke to Deborah. Deborah stated she received the clinical information and that she has forwarded information to [employer] Sushma. Deborah stated that CM would call MARCELLA if additional information is needed. SW/CM will follow up if needed.
--- NOTE | 2018-12-23 15:34 | NUR ---
SW was contacted by Deborah from [facility]. Deborah provided authorization #: [id number] through [employer] for home oxygen. SW/CM will follow up as needed.
[2018-12-23 16:00] VITALS: BP 128/78
--- NOTE | 2018-12-23 16:02 | NUR ---
MARCELLA contacted [facility] for home oxygen for patient [phone]. Spoke to Ash. Ash requested revision in doctor's orders. MARCELLA faxed doctor's order and authorization to [facility] [phone]. MARCELLA/PARTH will follow up as needed. Addendum: 12/23/18 at 1609 by Ajith Segovia SS Informed Charge Nurse
--- NOTE | 2018-12-23 16:15 | NUR ---
PATIENT SPO2 IS GREATER THAN 94% ON 2L/MIN O2 VIA NC. SPO2 FLUCTUATES BETWEEN 94% AND 100%. ALL OTHER VITALS ARE STABLE.
--- NOTE | 2018-12-23 16:59 | NUR ---
Spoke to Bryon and was told that patient Oxygen order is processing but was pending two things. 1) a Diagnosis code, and 2) the O2 settings. I provided the ordered O2 settings of 2L/min. I was not able to provide a a diagnosis code. Agent stated that she did have some paperwork from [place] and it included a diagnosis; however, she was not sure that was what was needed. She is forwarding all the information and paperwork to processing and will call us back if they need further details. Provided her with the unit phone number and instructed her to speak with charge nurse. Charge nurse aware.
[2018-12-23] MEDS ORDERED: LISI-420 PO (17:46)
--- NOTE | 2018-12-23 18:20 | NUR ---
PATIENT RESTING IN BED, NO SIGNS OF DISTRESS ON 2L O2 NC. SAFETY PRECAUTIONS IN PLACE.
--- NOTE | 2018-12-23 18:31 | NUR ---
CALLED [facility]) [phone], THEY ARE STILL WORKING ON PROCESSING THE ORDER, SHE PLACED EXPEDITE ORDER. THEY WILL CALL TO ARRANGE O2 DROP OFF
--- NOTE | 2018-12-23 19:17 | NUR ---
GAVE REPORT TO DONOR PROCESSOR RN, TAL. PATIENT IN STABLE CONDITION.
--- NOTE | 2018-12-23 19:37 | NUR ---
RECIEVED PT AAOX4 ,NID ON O2 /NC ,WITH SALINE LOCK INTACT AND PATENT , NO COMPLAIN MADE AT THIS TIME , FOR DISCHARGED TODAY ORDERED.
--- NOTE | 2018-12-23 20:00 | NUR ---
MADE ROUNDS V/S TAKEN -WNL .NO FURTHER COMPLAIN MADE AT THIS TIME .
--- NOTE | 2018-12-23 20:47 | NUR ---
CALLED [facility] REGARDING PT HOME OXYGEN, PT STATED HE DOES NOT LIVE IN THE ADDRESS ON FILE, INSTEAD HE LIVES WITH HIS COUSIN IN [facility] [address], [facility] TO SEND ALL EQUIPMENT TO HOSPITAL FOR PT TO BRING HOME. PT STATED UNDERSTANDING TOO, THAT HE WILL BRING HOME THE EQUIPMENT.
--- NOTE | 2018-12-23 21:39 | NUR ---
TALKED TO [facility] PIMENTEL, PER PERSONNEL EQUIPMENT CAN NOT BE DELIVERED TO HOSPITAL HAS TO GO TO PT HOME OR PLACE OF LIVING, GAVE PT CONTACT INFO FOR PT COUSIN [facility]ME[facility] PEREZ [phone] AND REQUEST THE REST OF EQUIPMENT TO BE DELIVERED TO [facility] PER PT STATED HE IS LIVING THERE WITH HIS COUSIN. 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
[2018-12-23 22:02] VITALS: BP 110/80
--- NOTE | 2018-12-23 22:30 | NUR ---
DISCHARGED INSTRUCTION GIVEN , HOME MEDS RX GIVEN AND INSTRUCTED TO PT - VERBALIZE UNDERSTANDING .DISCHARGE PAPERS SIGNED AND GIVEN TO PT. NO FURTHER COMPLAIN AT THIS TIME.
--- NOTE | 2018-12-23 23:38 | NUR ---
PT DISCHARGED WITH STABLE CONDITION , TRIAL MANAGER BY RELATIVE PER PRIVATE VEHICLE.
== END 2018-12-23 23:35 | disposition home or self-care (01) | DRG 190 ==
LOC: MED 09:46 → MTU 15:39
PROVIDERS: ADMIT General Practice; ATTEND General Practice
DX: I21.A1 Myocardial infarction type 2 (principal); J96.01 Acute respiratory failure with hypoxia; I50.43 Acute on chronic combined systolic (congestive) and diastolic (congestive) heart failure; J18.9 Pneumonia, unspecified organism; N17.9 Acute kidney failure, unspecified; E44.0 Moderate protein-calorie malnutrition; D68.69 Other thrombophilia; E83.42 Hypomagnesemia; I11.0 Hypertensive heart disease with heart failure; D69.6 Thrombocytopenia, unspecified; I08.1 Rheumatic disorders of both mitral and tricuspid valves; I42.9 Cardiomyopathy, unspecified; E11.9 Type 2 diabetes mellitus without complications; E78.5 Hyperlipidemia, unspecified; F10.10 Alcohol abuse, uncomplicated; Y90.9 Presence of alcohol in blood, level not specified; Z87.891 Personal history of nicotine dependence; Z91.14 Patient's other noncompliance with medication regimen; Z79.01 Long term (current) use of anticoagulants; Z79.899 Other long term (current) drug therapy; Z83.3 Family history of diabetes mellitus; Z71.41 Alcohol abuse counseling and surveillance of alcoholic; Z68.24 Body mass index [BMI] 24.0-24.9, adult
CPT/HCPCS: 36415; 36600; 71045; 71046; 76604; 80048; 80053; 80305; 81003; 82803; 83036; 83735; 83880; 84100; 84134; 84443; 84484; 85025; 85610; 85730; 87081; 93005; 96374; 99285; J0456; J0696; J1644; J1940; J3475; J3490; J7030; J7060; Q0092